=== PATIENT | male | born 1990 | race African-American/Black ===

== ENCOUNTER 2020-07-01 17:49 | Emergency (ER) | payer BC ==
[2020-07-01] MEDS ORDERED: Azithromycin 250 MG Tab PO ONE (17:50)
--- NOTE | 2020-07-01 18:27 | EDM.PDOC ---
ED HPI GENERAL MEDICAL PROBLEM - General Chief Complaint: Respiratory Problem Stated Complaint: COVID SYMPTOMS Time Seen by Provider: 07/01/20 18:25 Source of Information: Reports: Patient History Limitations: Reports: No Limitations - History of Present Illness INITIAL COMMENTS - FREE TEXT/NARRATIVE: 29-year-old male who reports onset of cough and some mild sore throat on 06/20. He reports that it seemed to be associated with him starting working at the [employer] with a lot of [place] environment. His symptoms however continued even when he was at work and they have progressively worsened with time. Ears associated with this. No nausea or vomiting. He has had some intermittent headache but has no headache now. He denies any pain at present. He would rate his pain as a 0/10 at present. He was seen at [facility] in [place] on 06/27/2020. He was given prescriptions for an inhaler and antibiotics and they were wanting to do a chest x-ray but the x-ray person darting left. The patient reports that he has been unable to fill the prescription because he does not have the funds to do that. In the interim, his feeling of shortness of breath and cough have worsened with time. The cough is a hacking cough and nonproductive. He reports that the symptoms are worse at night and he feels that he coughs all night and he coughs to the point of 4 he also passes out. No leg swelling. No chest pain. No palpitations. He reports that he has been eating and drinking normally. Nothing really seems to make his symptoms better. He does report that his sense of taste seems to be somewhat off today but he has normal sensation of smell. There are no other associated signs or symptoms. There are no other modifying factors. 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 Social & Family History - Tobacco Use Smoking Status *Q: Current Every Day Smoker - Alcohol Use Alcohol Use History: Yes Alcohol Use Frequency: Weekly (Drinks alcohol approximately 3 times a week.) - Recreational Drug Use Recreational Drug Use: No - Living Situation & Occupation Occupation: Employed ED ROS GENERAL - Review of Systems Review Of Systems: See Below Constitutional: Reports: Fatigue HEENT: Reports: Throat Pain Respiratory: Reports: Shortness of Breath, Cough. Denies: Sputum Cardiovascular: Reports: Lightheadedness (With coughing.) GI/Abdominal: Reports: No Symptoms : Reports: No Symptoms Musculoskeletal: Reports: No Symptoms Skin: Reports: No Symptoms Neurological: Reports: Other (Near-syncope with coughing.) Psychiatric: Reports: No Symptoms Hematologic/Lymphatic: Reports: No Symptoms Immunologic: Reports: No Symptoms ED EXAM, GENERAL - Physical Exam Exam: See Below Exam Limited By: No Limitations General Appearance: Alert, WD/WN, No Apparent Distress Eye Exam: Bilateral Eye: EOMI, Normal Inspection Ears: Normal External Exam, Hearing Grossly Normal Ear Exam: Bilateral Ear: Auricle Normal Nose: Normal Inspection, Normal Mucosa, No Blood Throat/Mouth: Normal Oropharynx, Normal Voice, No Airway Compromise Head: Atraumatic, Normocephalic Neck: Normal Inspection, Supple, Non-Tender, Full Range of Motion Respiratory/Chest: No Respiratory Distress, No Accessory Muscle Use, Wheezing (Bilaterally with decreased air movement.), Prolonged Expiration. No: Stridor Cardiovascular: Normal Peripheral Pulses, Regular Rate, Rhythm, No Murmur, No Rub Peripheral Pulses: 2+: Radial (L), Radial (R) GI/Abdominal: Normal Bowel Sounds, Soft, Non-Tender, No Mass Back Exam: Normal Inspection Extremities: Normal Inspection, Normal Range of Motion, Non-Tender, No Pedal Edema, Normal Capillary Refill Neurological: Alert, Oriented, CN II-XII Intact, Normal Cognition, No Motor/Sensory Deficits Skin Exam: Warm, Dry, Intact, Normal Color, No Rash Course - Vital Signs Last Recorded V/S: Last Vital Signs Temp 36.8 C 07/01/20 18:05 Pulse 100 07/01/20 18:05 Resp 18 07/01/20 18:05 BP 136/92 H 07/01/20 18:09 Pulse Ox 98 07/01/20 18:05 - Orders/Labs/Meds Orders: Active Orders 24 hr Category Date Time Status Chest 2V [CR] Stat Exams 07/01/20 20:50 Taken Labs: Laboratory Tests 07/01/20 Range/Units 19:05 SARS-CoV-2 RNA (MICHEL) Negative (NEGATIVE) Meds: Medications Discontinued Medications Generic Name Dose Route Start Last Admin Trade Name Sol PRN Reason Stop Dose Admin Albuterol 1 gm 07/01/20 20:51 07/01/20 21:15 Ventolin Hfa INH 07/01/20 20:52 4 inhaler ONETIME ONE Administration Prednisone 60 mg 07/01/20 20:51 07/01/20 21:15 Prednisone PO 07/01/20 20:52 60 mg ONETIME ONE Administration - Radiology Interpretation Free Text/Narrative:: Chest x-ray PA and lateral shows no acute disease. - Re-Assessments/Exams Free Text/Narrative Re-Assessment/Exam: 07/01/20 21:38: Patient's chest x-ray shows no acute disease. He has remained vitally stable with normal O2 saturations. He was given an albuterol inhaler, 4 puffs approximately 15-20 minutes ago and he is feeling improved after this. He was also given prednisone 60 mg by mouth. A rapid Covid test was negative. He appears to be having bronchitis with reactive airway disease. It appears that there could be an allergic component as he has been having symptoms since he began working at the [employer] that he is currently working. We will send the inhaler home with him that he can use 2-4 puffs every 4 hours as needed for cough and difficulty breathing. I will also place patient on Zithromax for 5 day course and prednisone 60 mg daily for the next 5 days. He should increase his fluid intake. I have strongly encouraged him to stop smoking cigarettes. Precautions and reasons for return to the emergency department were discussed with the patient will he was in the emergency department over detailed in the patient's discharge instructions. Departure - Departure Time of Disposition: 21:45 Disposition: Home, Self-Care 01 Condition: Good Clinical Impression: Bronchitis Reactive airway disease Qualifiers: Asthma severity: moderate Asthma persistence: persistent Asthma complication type: uncomplicated Qualified Code(s): J45.40 - Moderate persistent asthma, uncomplicated - Discharge Information Prescriptions: predniSONE [Prednisone] 60 mg PO QAM 5 Days #15 tablet Instructions: Bronchospasm, Adult, How to Use a Metered Dose Inhaler, Acute Bronchitis, Adult, [id number] Referrals: Samy Brown MD [Primary Care Provider] - Forms: ED Department Discharge, ED Return to Work/School Form Additional Instructions: A Covid test was negative. Your chest x-ray showed no evidence of pneumonia. You did have quite a bit of wheezing or bronchospasm (constriction of your air passages) and appeared to have an asthma-like condition called reactive airway disease which could be related to an infection but could also be related to the dust in your work environment. No work for the next 2 days. Use the albuterol inhaler with the spacer that we provided you for wheezing and for cough and for difficulty breathing. Increase your fluid intake. Other medications as prescribed (Zithromax, prednisone). Back to the emergency department for worse breathing, high fever, severe weakness or any other concerning sign or symptom. Sepsis Event Note (ED) - Evaluation Sepsis Screening Result: No Definite Risk - Focused Exam Vital Signs: Vital Signs Temp Pulse Resp BP Pulse Ox 07/01/20 18:09 136/92 H 07/01/20 18:05 36.8 C 100 18 157/104 H 98 - My Orders Last 24 Hours: My Active Orders 07/01/20 20:50 Chest 2V [CR] Stat - Assessment/Plan Last 24 Hours: My Active Orders 07/01/20 20:50 Chest 2V [CR] Stat
[2020-07-01] MEDS ORDERED: predniSONE 20 MG Tab PO ONE (20:51)
[2020-07-01] MEDS ORDERED: Albuterol 8 GM Inhaler INH ONE (20:51)
== END 2020-07-01 21:56 | disposition home or self-care (01) ==
LOC: FB.ED 17:49
DX: J45.40 Moderate persistent asthma, uncomplicated (principal); F17.210 Nicotine dependence, cigarettes, uncomplicated; Z20.828 Contact with and (suspected) exposure to other viral communicable diseases
CPT/HCPCS: 71046; 87635; 99285; A9270; J7512; U0002

== ENCOUNTER 2020-10-09 17:29 | Emergency (ER) | payer BC, MEDICAID ==
--- NOTE | 2020-10-09 18:44 | EDM.PDOC ---
ED HPI GENERAL MEDICAL PROBLEM - General Chief Complaint: Chest Pain Stated Complaint: CHEST PAIN Time Seen by Provider: 10/09/20 18:10 Source of Information: Reports: Patient History Limitations: Reports: No Limitations - History of Present Illness INITIAL COMMENTS - FREE TEXT/NARRATIVE: c/o L sided CP pt has been having sharp in his L upper chest for 1m, will last several hours to all day no increase with DB, lifting, putting arms overhead no decrease with heat not taken any meds for it says he used IV drugs in past, which has made him worried re his heart has taken BP med x 1y no PCP as moved to area, working, got his health card one month ago has infant child at home has been using an HFA for past 2m, daily, altho not clear he has been wheezing denies h/o asthma, no exercise induced asthma left chest Pain Score (Numeric/FACES): 6 - Related Data Allergies Allergy/AdvReac Type Severity Reaction Status Date / Time No Known Allergies Allergy Verified 07/01/20 18:04 Home Meds: Home Meds FLUoxetine [PROzac] 20 mg PO DAILY 10/09/20 [History] cloNIDine [Catapres] 0.1 mg PO BID 10/09/20 [History] Past Medical History Cardiovascular History: Reports: Hypertension Neurological History: Reports: Seizure Psychiatric History: Reports: Bipolar, PTSD - Past Surgical History Other Surgical History Comment: No previous surgeries. Social & Family History - Tobacco Use Tobacco Use Status *Q: Current Every Day Tobacco User Years of Tobacco use: 16 Packs/Tins Daily: 0.5 - Living Situation & Occupation Occupation: Employed ED ROS GENERAL - Review of Systems Review Of Systems: See Below Constitutional: Reports: No Symptoms HEENT: Reports: No Symptoms Respiratory: Denies: Wheezing, Pleuritic Chest Pain Cardiovascular: Reports: No Symptoms Endocrine: Reports: No Symptoms GI/Abdominal: Reports: No Symptoms : Reports: No Symptoms Musculoskeletal: Reports: No Symptoms Skin: Reports: No Symptoms Neurological: Reports: No Symptoms Psychiatric: Reports: No Symptoms Hematologic/Lymphatic: Reports: No Symptoms Immunologic: Reports: No Symptoms ED EXAM, GENERAL - Physical Exam Exam: See Below Exam Limited By: No Limitations General Appearance: Alert, WD/WN, No Apparent Distress, Other (holding hand on his L upper chest (not beter with massage), no point tender, pt wonders if it may be stress) Nose: Normal Inspection Throat/Mouth: Normal Inspection, Normal Voice Head: Atraumatic, Normocephalic Neck: Normal Inspection, Supple, Non-Tender, Full Range of Motion. No: Lymphadenopathy (R), Lymphadenopathy (L) Respiratory/Chest: No Respiratory Distress, Lungs Clear, Normal Breath Sounds, No Accessory Muscle Use, Chest Non-Tender Cardiovascular: Regular Rate, Rhythm, No Edema, No Gallop, No JVD, No Murmur, No Rub GI/Abdominal: Soft, Non-Tender Back Exam: Normal Inspection, Full Range of Motion, NT Extremities: Normal Inspection, Normal Range of Motion, Non-Tender, No Pedal Edema Neurological: Alert, Oriented, CN II-XII Intact, Normal Cognition, Normal Gait, No Motor/Sensory Deficits Psychiatric: Normal Affect, Normal Mood Skin Exam: Warm, Dry, Intact, Normal Color, No Rash Lymphatic: No Adenopathy Course - Vital Signs Last Recorded V/S: Last Vital Signs Temp 37.0 C 10/09/20 17:29 Pulse 100 10/09/20 17:29 Resp 19 10/09/20 17:29 BP 165/96 H 10/09/20 17:29 Pulse Ox 97 10/09/20 17:29 - Orders/Labs/Meds Orders: Active Orders 24 hr Category Date Time Status Chest 2V [CR] Stat Exams 10/09/20 18:37 Ordered C-REACTIVE PROTEIN [CHEM] Stat Lab 10/09/20 18:37 Ordered CBC WITH AUTO DIFF [HEME] Stat Lab 10/09/20 18:37 Ordered COMPREHENSIVE METABOLIC PN,CMP [CHEM] Stat Lab 10/09/20 18:37 Ordered PRO B-TYPE NATRIUR PEPT,BNPPRO [CHEM] Stat Lab 10/09/20 18:37 Ordered TROPONIN I [CHEM] Stat Lab 10/09/20 18:37 Ordered Departure - Departure Time of Disposition: 19:00 Disposition: Still A Patient 30 Condition: Good Clinical Impression: Left-sided chest wall pain Sepsis Event Note (ED) - Evaluation Sepsis Screening Result: No Definite Risk - Focused Exam Vital Signs: Vital Signs Temp Pulse Resp BP Pulse Ox 10/09/20 17:29 37.0 C 100 19 165/96 H 97 - My Orders Last 24 Hours: My Active Orders 10/09/20 18:37 Chest 2V [CR] Stat C-REACTIVE PROTEIN [CHEM] Stat CBC WITH AUTO DIFF [HEME] Stat COMPREHENSIVE METABOLIC PN,CMP [CHEM] Stat PRO B-TYPE NATRIUR PEPT,BNPPRO [CHEM] Stat TROPONIN I [CHEM] Stat - Assessment/Plan Last 24 Hours: My Active Orders 10/09/20 18:37 Chest 2V [CR] Stat C-REACTIVE PROTEIN [CHEM] Stat CBC WITH AUTO DIFF [HEME] Stat COMPREHENSIVE METABOLIC PN,CMP [CHEM] Stat PRO B-TYPE NATRIUR PEPT,BNPPRO [CHEM] Stat TROPONIN I [CHEM] Stat
--- NOTE | 2020-10-09 19:55 | CR ---
INDICATION: Left upper chest pain. CHEST, TWO VIEWS: PA and lateral views of the chest 10/09/20 were compared with 07/01/20 and revealed the heart to remain normal in size and shape. Mediastinum and bony thorax were essentially unremarkable except to note a very minimal dextroconvex scoliosis of the mid thoracic spine. Overlying EKG leads are noted. A definite active infiltrate or effusion was not identified with markings similar to the previous examination. IMPRESSION: No definite active disease. MTDD
== END 2020-10-09 21:05 | disposition still patient (30) ==
LOC: FB.ED 17:29
DX: R07.89 Other chest pain (principal); I10 Essential (primary) hypertension; Z72.0 Tobacco use
CPT/HCPCS: 36415; 71046; 80053; 83880; 84484; 85025; 86140; 93005; 99284; 99285-25

== ENCOUNTER 2020-10-14 16:20 | Emergency (ER) | payer MEDICAID ==
--- NOTE | 2020-10-14 18:22 | EDM.PDOC ---
ED HPI GENERAL MEDICAL PROBLEM - General Chief Complaint: Abdominal Pain Stated Complaint: ABDOMINAL PAIN Time Seen by Provider: 10/14/20 18:20 Source of Information: Reports: Patient History Limitations: Reports: No Limitations - History of Present Illness INITIAL COMMENTS - FREE TEXT/NARRATIVE: 30-year-old male who reports onset of left lower abdominal pain that is a sharp and throbbing type pain 3 days ago. The pain has progressively worsened with time and it seems to have radiated to his flank and to his left mid back and sometimes seems to go into his left chest. He was actually seen here 3 days ago for the chest pain and he reports the pain has not improved. He has also noted some nausea with vomiting over the past few days with vomiting times one today he also has had diarrhea today 3. There has been no blood in either the emesis or the stool but he does report that the stool has been somewhat dark. No fevers but he has had sweats. No chills. No nasal congestion. No cough. No sore throat. No dysuria. No hematuria. He does report decreased urine output and he has had decreased by mouth intake. There are no other associated signs or symptoms. There are no other modifying factors. Onset: Other Duration: Getting Worse (3 days ago) Location: Reports: Chest, Abdomen, Back Quality: Reports: Sharp, Throbbing Severity: Moderate (to severe.) Improves with: Reports: None Worsens with: Reports: Other (Palpation. He really has not been eating and has no appetite.) Context: Reports: Other (As above.) Associated Symptoms: Reports: Loss of Appetite, Malaise, Nausea/Vomiting Treatments CLOUD CONSULTANT: Reports: Other (see below) (Nothing.) - Related Data Allergies Allergy/AdvReac Type Severity Reaction Status Date / Time No Known Allergies Allergy Verified 07/01/20 18:04 Home Meds: Home Meds FLUoxetine [PROzac] 20 mg PO DAILY 10/09/20 [History] cloNIDine [Catapres] 0.1 mg PO BID 10/09/20 [History] Past Medical History Cardiovascular History: Reports: Hypertension Respiratory History: Reports: Other (See Below) (Reactive airway disease on inhalers.) Neurological History: Reports: Seizure Psychiatric History: Reports: Bipolar, PTSD - Past Surgical History Other Surgical History Comment: No previous surgeries. Social & Family History - Tobacco Use Tobacco Use Status *Q: Current Every Day Tobacco User - Alcohol Use Alcohol Use History: Yes Alcohol Use Frequency: Weekly (3 times a week) - Living Situation & Occupation Occupation: Employed (Works at [employer]) ED ROS GENERAL - Review of Systems Review Of Systems: See Below Constitutional: Reports: Malaise, Night Sweats, Decreased Appetite HEENT: Reports: No Symptoms Respiratory: Reports: No Symptoms Cardiovascular: Reports: No Symptoms GI/Abdominal: Reports: Abdominal Pain, Diarrhea, Nausea, Vomiting : Reports: Other (Decreased urine output). Denies: Dysuria, Hematuria Musculoskeletal: Reports: No Symptoms Skin: Reports: No Symptoms Neurological: Reports: No Symptoms Hematologic/Lymphatic: Reports: No Symptoms Immunologic: Reports: No Symptoms ED EXAM, GI/ABD - Physical Exam Exam: See Below Exam Limited By: No Limitations General Appearance: Alert, WD/WN, Mild Distress (Seems to be in some pain. He does not appear toxic.) Eyes: Bilateral: Normal Appearance, EOMI Ears: Normal External Exam, Hearing Grossly Normal Nose: Normal Inspection, Nasal Deformity, Nasal Swelling, Nasal Drainage Throat/Mouth: Normal Voice, No Airway Compromise, Other (Dry mucous membranes.) Head: Atraumatic, Normocephalic Neck: Normal Inspection, Supple, Non-Tender, Full Range of Motion Respiratory/Chest: No Respiratory Distress, Lungs Clear, Normal Breath Sounds, No Accessory Muscle Use, Chest Non-Tender Cardiovascular: Normal Peripheral Pulses, Regular Rate, Rhythm, No Murmur GI/Abdominal Exam: Soft, No Mass, Tender (He left lower quadrant and left flank.), Abnormal Bowel Sounds (Bowel sounds are somewhat diminished.) Back Exam: Full Range of Motion, CVA Tenderness (L) Extremities: Normal Inspection, Normal Range of Motion, Non-Tender, No Pedal Edema, Normal Capillary Refill Neurological: Alert, Oriented, CN II-XII Intact, Normal Cognition, No Motor/Sensory Deficits Skin Exam: Warm, Dry, Intact, Normal Color, No Rash Course - Vital Signs Last Recorded V/S: Last Vital Signs Temp 36.7 C 10/14/20 17:01 Pulse 87 10/14/20 17:01 Resp 17 10/14/20 17:01 BP 157/109 H 10/14/20 17:01 Pulse Ox 98 10/14/20 17:01 - Orders/Labs/Meds Orders: Active Orders 24 hr Category Date Time Status Abdomen Pelvis w Cont [CT] Stat Exams 10/14/20 19:28 Ordered Sodium Chloride 0.9% [Normal Saline] 1,000 ml Med 10/14/20 18:45 Active IV ASDIRECTED Sodium Chloride 0.9% [Saline Flush] Med 10/14/20 18:30 Active 10 ml FLUSH ASDIRECTED PRN Peripheral IV Insertion Adult [OM.PC] Routine Oth 10/14/20 18:30 Ordered Medication Orders Sodium Chloride (Normal Saline) 1,000 mls @ 150 mls/hr IV ASDIRECTED ISELA Last Admin: 10/14/20 19:52 Dose: 150 mls/hr Documented by: MATIMAR Sodium Chloride (Saline Flush) 10 ml FLUSH ASDIRECTED PRN PRN Reason: Keep Vein Open Labs: Laboratory Tests 10/14/20 10/14/20 10/14/20 Range/Units 18:30 18:40 18:40 WBC 6.8 (3.2-10.1) x10-3/uL RBC 4.96 (3.90-5.90) x10(6)uL Hgb 15.4 (12.9-17.7) g/dL Hct 45.4 (38.3-50.1) % MCV 91.6 (80.8-98.7) fL MCH 31.0 (27.0-33.3) pg MCHC 33.8 (28.7-35.3) g/dL RDW 13.7 (12.4-15.0) % Plt Count 234 (117-477) x10(3)uL MPV 9.6 (6.7-11.0) fL Neut % (Auto) 55.3 (40.3-71.8) % Lymph % (Auto) 27.5 (15.8-45.3) % [place] % (Auto) 14.0 (5.5-15.2) % Eos % (Auto) 2.5 (0.1-6.8) % Baso % (Auto) 0.7 (0.3-3.8) % Neut # (Auto) 3.7 (1.7-6.9) x10-3/uL Lymph # (Auto) 1.9 (0.5-4.5) x10-3/uL [place] # (Auto) 0.9 (0.0-1.2) x10-3/uL Eos # (Auto) 0.2 (0.0-0.6) x10-3/uL Baso # (Auto) 0.0 (0.0-0.3) x10-3/uL Sodium 138 (135-145) mmol/L Potassium 4.0 (3.5-5.3) mmol/L Chloride 100 (100-110) mmol/L Carbon Dioxide 27 (21-32) mmol/L BUN 7 (7-18) mg/dL Creatinine 1.1 (0.70-1.30) mg/dL Est Cr Clr Drug Dosing TNP Estimated GFR (MDRD) > 60 (>60) BUN/Creatinine Ratio 6.4 L (9-20) Glucose 105 (80-116) mg/dL Calcium 8.4 L (8.6-10.2) mg/dL Magnesium 1.4 L (1.8-2.5) mg/dL Total Bilirubin 0.7 (0.1-1.3) mg/dL AST 100 H D (5-25) IU/L ALT 164 H* D (12-36) U/L Alkaline Phosphatase 116 H (56-112) IU/L C-Reactive Protein (0.5-0.9) mg/dL Total Protein 8.2 H (6.0-8.0) g/dL Albumin 3.9 (3.5-5.2) g/dL Globulin 4.3 g/dL Albumin/Globulin Ratio 0.9 Lipase (73-393) U/L Urine Color Yellow (YELLOW) Urine Appearance Slightly cloudy (CLEAR) Urine pH 6.0 (5.0-6.5) Ur Specific [place] 1.020 (1.010-1.025) Urine Protein 30 H (NEGATIVE) mg/dL Urine Glucose (UA) Normal (NORMAL) mg/dL Urine Ketones 15 H (NEGATIVE) mg/dL Urine Occult Blood Negative (NEGATIVE) Urine Nitrite Negative (NEGATIVE) Urine Bilirubin Small H (NEGATIVE) Urine Urobilinogen Normal (NEGATIVE) mg/dL Ur Leukocyte Esterase Negative (NEGATIVE) Urine RBC 0-5 (0-5) Urine WBC 0-5 (0-5) Ur Squamous Epith Cells Occasional (NS,R,O) Urine Bacteria Few H (NS) Fine Granular Casts Occasional H (NS) Urine Mucus Many H (NS) 10/14/20 Range/Units 18:40 WBC (3.2-10.1) x10-3/uL RBC (3.90-5.90) x10(6)uL Hgb (12.9-17.7) g/dL Hct (38.3-50.1) % MCV (80.8-98.7) fL MCH (27.0-33.3) pg MCHC (28.7-35.3) g/dL RDW (12.4-15.0) % Plt Count (117-477) x10(3)uL MPV (6.7-11.0) fL Neut % (Auto) (40.3-71.8) % Lymph % (Auto) (15.8-45.3) % [place] % (Auto) (5.5-15.2) % Eos % (Auto) (0.1-6.8) % Baso % (Auto) (0.3-3.8) % Neut # (Auto) (1.7-6.9) x10-3/uL Lymph # (Auto) (0.5-4.5) x10-3/uL [place] # (Auto) (0.0-1.2) x10-3/uL Eos # (Auto) (0.0-0.6) x10-3/uL Baso # (Auto) (0.0-0.3) x10-3/uL Sodium (135-145) mmol/L Potassium (3.5-5.3) mmol/L Chloride (100-110) mmol/L Carbon Dioxide (21-32) mmol/L BUN (7-18) mg/dL Creatinine (0.70-1.30) mg/dL Est Cr Clr Drug Dosing Estimated GFR (MDRD) (>60) BUN/Creatinine Ratio (9-20) Glucose (80-116) mg/dL Calcium (8.6-10.2) mg/dL Magnesium (1.8-2.5) mg/dL Total Bilirubin (0.1-1.3) mg/dL AST (5-25) IU/L ALT (12-36) U/L Alkaline Phosphatase (56-112) IU/L C-Reactive Protein 0.3 L (0.5-0.9) mg/dL Total Protein (6.0-8.0) g/dL Albumin (3.5-5.2) g/dL Globulin g/dL Albumin/Globulin Ratio Lipase 105 (73-393) U/L Urine Color (YELLOW) Urine Appearance (CLEAR) Urine pH (5.0-6.5) Ur Specific [place] (1.010-1.025) Urine Protein (NEGATIVE) mg/dL Urine Glucose (UA) (NORMAL) mg/dL Urine Ketones (NEGATIVE) mg/dL Urine Occult Blood (NEGATIVE) Urine Nitrite (NEGATIVE) Urine Bilirubin (NEGATIVE) Urine Urobilinogen (NEGATIVE) mg/dL Ur Leukocyte Esterase (NEGATIVE) Urine RBC (0-5) Urine WBC (0-5) Ur Squamous Epith Cells (NS,R,O) Urine Bacteria (NS) Fine Granular Casts (NS) Urine Mucus (NS) Meds: Medications Generic Name Dose Route Start Last Admin Trade Name Freq PRN Reason Stop Dose Admin Sodium Chloride 1,000 mls @ 150 mls/hr 10/14/20 18:45 10/14/20 19:52 Normal Saline IV 150 mls/hr ASDIRECTED ISELA Administration Sodium Chloride 10 ml 10/14/20 18:30 Saline Flush FLUSH ASDIRECTED PRN Keep Vein Open Discontinued Medications Generic Name Dose Route Start Last Admin Trade Name Freq PRN Reason Stop Dose Admin Sodium Chloride 1,000 mls @ 999 mls/hr 10/14/20 18:32 10/14/20 18:35 Normal Saline IV 10/14/20 19:32 999 mls/hr .BOLUS ONE Administration Iopamidol 100 ml 10/14/20 19:37 10/14/20 19:51 Isovue-370 (76%) IV 10/14/20 19:38 100 ml . DIRECTED ONE Administration Ketorolac Tromethamine 30 mg 10/14/20 18:32 10/14/20 18:49 Toradol IVPUSH 10/14/20 18:33 30 mg ONETIME ONE Administration Ondansetron HCl 4 mg 10/14/20 18:32 10/14/20 18:51 Zofran IVPUSH 10/14/20 18:33 4 mg ONETIME ONE Administration - Re-Assessments/Exams Free Text/Narrative Re-Assessment/Exam: 10/14/20 19:30: Care of patient to Dr. Urnea. Please see his note regard to the patient's further ED course and to the patient's disposition. Departure - Departure Time of Disposition: 19:30 Disposition: Still A Patient 30 Clinical Impression: Vomiting and diarrhea Abdominal pain Qualifiers: Abdominal location: left lower quadrant Qualified Code(s): R10.32 - Left lower quadrant pain - Discharge Information Referrals: PCP,None [Primary Care Provider] - Forms: ED Department Discharge Sepsis Event Note (ED) - Focused Exam Vital Signs: Vital Signs Temp Pulse Resp BP Pulse Ox 10/14/20 17:01 36.7 C 87 17 157/109 H 98 - My Orders Last 24 Hours: My Active Orders 10/14/20 18:30 Sodium Chloride 0.9% [Saline Flush] 10 ml FLUSH ASDIRECTED PRN Peripheral IV Insertion Adult [OM.PC] Routine 10/14/20 18:45 Sodium Chloride 0.9% [Normal Saline] 1,000 ml IV ASDIRECTED - Assessment/Plan Last 24 Hours: My Active Orders 10/14/20 18:30 Sodium Chloride 0.9% [Saline Flush] 10 ml FLUSH ASDIRECTED PRN Peripheral IV Insertion Adult [OM.PC] Routine 10/14/20 18:45 Sodium Chloride 0.9% [Normal Saline] 1,000 ml IV ASDIRECTED
[2020-10-14] MEDS ORDERED: Sodium Chloride 0.9% 10 ML Syringe FLUSH PRN (18:30)
[2020-10-14] MEDS ORDERED: Ondansetron 4 MG/2 ML SDV IVPUSH ONE (18:32)
[2020-10-14] MEDS ORDERED: Ketorolac 30 MG/ML SDV IVPUSH ONE (18:32)
[2020-10-14] MEDS ORDERED: Sodium Chloride 0.9% 1,000 ML IV ONE (18:32)
[2020-10-14] MEDS ORDERED: Sodium Chloride 0.9% 1,000 ML IV SCH (18:45)
[2020-10-14] MEDS ORDERED: Iopamidol 755 Mg/ML 100 ML Bottle IV ONE (19:37)
== END 2020-10-14 21:05 | disposition home or self-care (01) ==
LOC: FB.ED 16:20
DX: K76.0 Fatty (change of) liver, not elsewhere classified (principal); R10.32 Left lower quadrant pain; I10 Essential (primary) hypertension; R11.2 Nausea with vomiting, unspecified; J45.909 Unspecified asthma, uncomplicated; R19.7 Diarrhea, unspecified; Z79.899 Other long term (current) drug therapy; Z72.0 Tobacco use
CPT/HCPCS: 74177; 80053; 81001; 83690; 83735; 85025; 86140; 96374; 96375; 99284; J1885; J2405; J7030; Q9967

== ENCOUNTER 2021-02-15 11:24 | Inpatient (IN) | payer MEDICAID ==
[2021-02-15] MEDS ORDERED: Ketorolac 30 MG/ML SDV IVPUSH ONE (11:59)
[2021-02-15] MEDS ORDERED: Ondansetron 4 MG/2 ML SDV IVPUSH ONE (11:59)
[2021-02-15] MEDS ORDERED: Sodium Chloride 0.9% 1,000 ML IV SCH (12:00)
--- NOTE | 2021-02-15 12:12 | EDM.PDOC ---
ED HPI GENERAL MEDICAL PROBLEM - General Chief Complaint: Abdominal Pain Stated Complaint: ABD AND BACK PAIN Time Seen by Provider: 02/15/21 11:45 Source of Information: Reports: Patient History Limitations: Reports: No Limitations - History of Present Illness INITIAL COMMENTS - FREE TEXT/NARRATIVE: c/o abd pain awoke 3a with pain in upper mid abd, continuous, spread throughout abd, n/v all day has had low back pain x 1w as well since injury playing basketball denies prior abd pain except for 1m ago when he went to clinic, that pain went away no f/c/d on a GI med begun 1m ago at [facility] that he takes 30 min before meals, not sure of the name PSH: no prior abd surgery SH: has 6-7 shots/day, 4-5 cigs/day, denies THC/street drugs, little caffeine, here with sig other and child sabina soft BM today ABDOMINAL Pain Score (Numeric/FACES): 10 - Related Data Allergies Allergy/AdvReac Type Severity Reaction Status Date / Time No Known Allergies Allergy Unverified 02/15/21 11:57 Home Meds: Home Meds cloNIDine [Catapres] 0.05 mg PO DAILY 10/09/20 [History] Albuterol Sulfate [Albuterol Sulfate Hfa] 2 puff INH Q4H PRN 02/15/21 [History] Losartan [Cozaar] 50 mg PO DAILY 02/15/21 [History] ED ROS GENERAL - Review of Systems Review Of Systems: See Below Constitutional: Reports: No Symptoms HEENT: Reports: No Symptoms Respiratory: Reports: No Symptoms Cardiovascular: Reports: No Symptoms Endocrine: Reports: No Symptoms GI/Abdominal: Reports: Abdominal Pain, Nausea, Vomiting. Denies: Constipation, Diarrhea : Reports: No Symptoms Musculoskeletal: Reports: No Symptoms Skin: Reports: No Symptoms Neurological: Reports: No Symptoms Psychiatric: Reports: No Symptoms Hematologic/Lymphatic: Reports: No Symptoms Immunologic: Reports: No Symptoms ED EXAM, GI/ABD - Physical Exam Exam: See Below Exam Limited By: No Limitations General Appearance: Alert, WD/WN, Mild Distress, Other (alert, lying on R side, nontoxic, cooperative, uncomfortable, alcohol on breath) Nose: Normal Inspection Throat/Mouth: Normal Inspection, Normal Oropharynx, Normal Voice, No Airway Compromise Head: Atraumatic, Normocephalic Neck: Normal Inspection, Supple, Non-Tender, Full Range of Motion. No: Lymphadenopathy (R), Lymphadenopathy (L) Respiratory/Chest: No Respiratory Distress, Lungs Clear, Normal Breath Sounds, Chest Non-Tender Cardiovascular: Regular Rate, Rhythm, No Edema, No Gallop, No JVD, No Murmur GI/Abdominal Exam: Normal Bowel Sounds, Soft, Other (good BS x 4, soft, prominent c/w adipose tissue (and not distention), nonspecific 1+ tender at flanks and across upper abd, very little tender across lower abd) Back Exam: Normal Inspection, Full Range of Motion Extremities: Normal Inspection, Non-Tender, No Pedal Edema Neurological: Alert, Oriented, CN II-XII Intact, Normal Cognition, No Motor/Sensory Deficits Psychiatric: Normal Affect, Normal Mood Skin Exam: Warm, Dry, Intact, Normal Color, No Rash Lymphatic: No Adenopathy Course - Vital Signs Last Recorded V/S: Last Vital Signs Temp 36.4 C 02/15/21 11:35 Pulse 113 H 02/15/21 11:35 Resp 22 H 02/15/21 11:35 BP 148/98 H 02/15/21 11:35 Pulse Ox 96 02/15/21 11:35 - Orders/Labs/Meds Orders: Active Orders 24 hr Category Date Time Status Admission Status [Patient Status] [ADT] Routine ADT 02/15/21 13:50 Ordered Abdomen Pelvis w Cont [CT] Stat Exams 02/15/21 12:00 Taken Sodium Chloride 0.9% [Normal Saline] 1,000 ml Med 02/15/21 12:00 Active IV ASDIRECTED Medication Orders Sodium Chloride (Normal Saline) 1,000 mls @ 999 mls/hr IV ASDIRECTED ISELA Last Admin: 02/15/21 12:15 Dose: 999 mls/hr Documented by: JOSEFINA Labs: Laboratory Tests 02/15/21 02/15/21 02/15/21 Range/Units 12:12 12:12 12:12 WBC 8.2 (3.2-10.1) x10-3/uL RBC 4.94 (3.90-5.90) x10(6)uL Hgb 16.0 (12.9-17.7) g/dL Hct 47.4 (38.3-50.1) % MCV 96.0 (80.8-98.7) fL MCH 32.5 (27.0-33.3) pg MCHC 33.8 (28.7-35.3) g/dL RDW 13.6 (12.4-15.0) % Plt Count 194 (117-477) x10(3)uL MPV 9.8 (6.7-11.0) fL Neut % (Auto) 63.8 (40.3-71.8) % Lymph % (Auto) 23.6 (15.8-45.3) % [place] % (Auto) 11.7 (5.5-15.2) % Eos % (Auto) 0.5 (0.1-6.8) % Baso % (Auto) 0.4 (0.3-3.8) % Neut # (Auto) 5.3 (1.7-6.9) x10-3/uL Lymph # (Auto) 1.9 (0.5-4.5) x10-3/uL [place] # (Auto) 1.0 (0.0-1.2) x10-3/uL Eos # (Auto) 0.0 (0.0-0.6) x10-3/uL Baso # (Auto) 0.0 (0.0-0.3) x10-3/uL Sodium 136 (135-145) mmol/L Potassium 3.5 (3.5-5.3) mmol/L Chloride 98 L (100-110) mmol/L Carbon Dioxide 25 (21-32) mmol/L BUN 7 (7-18) mg/dL Creatinine 1.2 (0.70-1.30) mg/dL Est Cr Clr Drug Dosing 86.29 mL/min Estimated GFR (MDRD) > 60 (>60) BUN/Creatinine Ratio 5.8 L (9-20) Glucose 187 H D (80-116) mg/dL Calcium 8.0 L (8.6-10.2) mg/dL Total Bilirubin 0.8 (0.1-1.3) mg/dL AST 247 H* D (5-25) IU/L ALT 195 H* D (12-36) U/L Alkaline Phosphatase 130 H (56-112) IU/L C-Reactive Protein 0.8 (0.5-0.9) mg/dL Total Protein 8.3 H (6.0-8.0) g/dL Albumin 3.6 (3.5-5.2) g/dL Globulin 4.7 g/dL Albumin/Globulin Ratio 0.8 Lipase 477 H (73-393) U/L Urine Color (YELLOW) Urine Appearance (CLEAR) Urine pH (5.0-6.5) Ur Specific [place] (1.010-1.025) Urine Protein (NEGATIVE) mg/dL Urine Glucose (UA) (NORMAL) mg/dL Urine Ketones (NEGATIVE) mg/dL Urine Occult Blood (NEGATIVE) Urine Nitrite (NEGATIVE) Urine Bilirubin (NEGATIVE) Urine Urobilinogen (NEGATIVE) mg/dL Ur Leukocyte Esterase (NEGATIVE) Urine RBC (0-5) Urine WBC (0-5) Ur Squamous Epith Cells (NS,R,O) Urine Bacteria (NS) Urine Mucus (NS) Ethyl Alcohol 0.13 H (<0.03) % // Range/Units 13:20 WBC (3.2-10.1) x10-3/uL RBC (3.90-5.90) x10(6)uL Hgb (12.9-17.7) g/dL Hct (38.3-50.1) % MCV (80.8-98.7) fL MCH (27.0-33.3) pg MCHC (28.7-35.3) g/dL RDW (12.4-15.0) % Plt Count (117-477) x10(3)uL MPV (6.7-11.0) fL Neut % (Auto) (40.3-71.8) % Lymph % (Auto) (15.8-45.3) % [place] % (Auto) (5.5-15.2) % Eos % (Auto) (0.1-6.8) % Baso % (Auto) (0.3-3.8) % Neut # (Auto) (1.7-6.9) x10-3/uL Lymph # (Auto) (0.5-4.5) x10-3/uL [place] # (Auto) (0.0-1.2) x10-3/uL Eos # (Auto) (0.0-0.6) x10-3/uL Baso # (Auto) (0.0-0.3) x10-3/uL Sodium (135-145) mmol/L Potassium (3.5-5.3) mmol/L Chloride (100-110) mmol/L Carbon Dioxide (21-32) mmol/L BUN (7-18) mg/dL Creatinine (0.70-1.30) mg/dL Est Cr Clr Drug Dosing mL/min Estimated GFR (MDRD) (>60) BUN/Creatinine Ratio (9-20) Glucose (80-116) mg/dL Calcium (8.6-10.2) mg/dL Total Bilirubin (0.1-1.3) mg/dL AST (5-25) IU/L ALT (12-36) U/L Alkaline Phosphatase (56-112) IU/L C-Reactive Protein (0.5-0.9) mg/dL Total Protein (6.0-8.0) g/dL Albumin (3.5-5.2) g/dL Globulin g/dL Albumin/Globulin Ratio Lipase (73-393) U/L Urine Color [place] (YELLOW) Urine Appearance Clear (CLEAR) Urine pH 5.0 (5.0-6.5) Ur Specific [place] 1.010 (1.010-1.025) Urine Protein Negative (NEGATIVE) mg/dL Urine Glucose (UA) Normal (NORMAL) mg/dL Urine Ketones Negative (NEGATIVE) mg/dL Urine Occult Blood Negative (NEGATIVE) Urine Nitrite Negative (NEGATIVE) Urine Bilirubin Negative (NEGATIVE) Urine Urobilinogen Normal (NEGATIVE) mg/dL Ur Leukocyte Esterase Negative (NEGATIVE) Urine RBC 0-5 (0-5) Urine WBC 5-10 H (0-5) Ur Squamous Epith Cells Occasional (NS,R,O) Urine Bacteria Rare H (NS) Urine Mucus Moderate H (NS) Ethyl Alcohol (<0.03) % Meds: Medications Generic Name Dose Route Start Last Admin Trade Name Freq PRN Reason Stop Dose Admin Sodium Chloride 1,000 mls @ 999 mls/hr 02/15/21 12:00 02/15/21 12:15 Normal Saline IV 999 mls/hr ASDIRECTED ISELA Administration Discontinued Medications Generic Name Dose Route Start Last Admin Trade Name Freq PRN Reason Stop Dose Admin Iopamidol 150 ml 02/15/21 12:21 02/15/21 13:18 Iopamidol 755 Mg/Ml 150 Ml Bottle IV 02/15/21 12:22 121 ml ONETIME ONE Administration Ketorolac Tromethamine 30 mg 02/15/21 11:59 02/15/21 12:18 Ketorolac 30 Mg/Ml Sdv IVPUSH 02/15/21 12:00 30 mg ONETIME ONE Administration Ondansetron HCl 4 mg 02/15/21 11:59 02/15/21 12:18 Ondansetron 4 Mg/2 Ml Sdv IVPUSH 02/15/21 12:00 4 mg ONETIME ONE Administration - Re-Assessments/Exams Free Text/Narrative Re-Assessment/Exam: 02/15/21 13:54 MPMP neg x 1y d/w Dr Rodriguez, phlegmon at head of pancreas, fatty liver pt denies alc tx in past, did inpt tx for IVDA (heroin) in [place] nearly 4y ago, says he has been clean of heroin since d/c nearly 4y ago, however does dri nk alc daily no previous h/o pancreatitis is agreeable to admission N better, not gone pain down to 8/10 after Toradol IV, says he is more comfortable and not restless on the bed d/w Dr Augustine who accepted him in admission and will come see pt Departure - Departure Time of Disposition: 13:51 Disposition: Admitted As Inpatient 65 Condition: Good Clinical Impression: Acute pancreatitis, Phlegmon of pancreas, Fatty liver, Alcohol abuse, History of intravenous drug abuse, Elevated total protein, Hyperglycemia - Discharge Information *PRESCRIPTION DRUG MONITORING PROGRAM REVIEWED*: Yes *COPY OF PRESCRIPTION DRUG MONITORING REPORT IN PATIENT MANPREET: No Forms: ED Department Discharge Sepsis Event Note (ED) - Focused Exam Vital Signs: Vital Signs Temp Pulse Resp BP Pulse Ox 02/15/21 11:35 36.4 C 113 H 22 H 148/98 H 96 - My Orders Last 24 Hours: My Active Orders 02/15/21 12:00 Abdomen Pelvis w Cont [CT] Stat Sodium Chloride 0.9% [Normal Saline] 1,000 ml IV ASDIRECTED 02/15/21 13:50 Admission Status [Patient Status] [ADT] Routine - Assessment/Plan Last 24 Hours: My Active Orders 02/15/21 12:00 Abdomen Pelvis w Cont [CT] Stat Sodium Chloride 0.9% [Normal Saline] 1,000 ml IV ASDIRECTED 02/15/21 13:50 Admission Status [Patient Status] [ADT] Routine
[2021-02-15] MEDS ORDERED: Iopamidol 755 MG/ML 150 ML Bottle IV ONE (12:21)
[2021-02-15] MEDS ORDERED: Albuterol 8 GM Inhaler INH PRN (14:40)
[2021-02-15] MEDS ORDERED: HYDROmorphone 2 MG/ML SDV IVPUSH PRN (14:45)
[2021-02-15] MEDS ORDERED: Glucagon,Human Recombinant 1 MG Vial IM PRN (14:53)
[2021-02-15] MEDS ORDERED: 50% Dextrose in Water 50 ML Syringe IVPUSH PRN (14:53)
[2021-02-15] MEDS ORDERED: MVI, Adult with Vitamin K 10 ML, Thiamine 100 MG, Folic Acid 1 MG, Magnesium Sulfate 3 ... IV ONE ×5 (15:00)
[2021-02-15] MEDS ORDERED: LORazepam 1 MG Tab PO SCH (15:00)
[2021-02-15] MEDS: cloNIDine 0.1 MG Tab PO SCH (15:26)
[2021-02-15] MEDS: Insulin Lispro 100 Unit/ML 3 ML KwikPen SUBCUT SCH ×5 (15:37→23:35)
--- NOTE | 2021-02-15 15:54 | PCM.HP.2 ---
H&P History of Present Illness - General Date of Service: 02/15/21 Admit Problem/Dx: Admission Diagnosis/Problem Admission Diagnosis/Problem Pancreatitis Source of Information: Patient, Old Records, Provider History Limitations: Reports: No Limitations - History of Present Illness Initial Comments - Free Text/Narative: 30-year-old gentleman with a past medical history significant for alcohol and other substance abuse came to the emergency department for evaluation of acute abdominal pain. He has been to rehabilitation and has not used any substances other than alcohol for several years. However, he does drink alcohol, 6 or more 1 ounce servings of liquor daily. His last alcohol use was approximately 24 hours prior to presenting to the emergency department and the patient states he had about 5 shots. He had been having increasing abdominal pain, nausea, and reduced appetite for several days. In the emergency department he was found to have acute pancreatitis with elevated liver enzymes and elevated lipase. CT of the abdomen showed likely pancreatitis with likely pseudocyst/phlegmon. Patient will be admitted for treatment of acute pancreatitis. Onset of Symptoms: Reports: Gradual Duration of Symptoms: Reports: Day(s): Location: Reports: Abdomen ABDOMINAL Pain Score (Numeric/FACES): 10 - Related Data Allergies/Adverse Reactions: Allergies Allergy/AdvReac Type Severity Reaction Status Date / Time No Known Allergies Allergy Unverified 02/15/21 11:57 Home Medications: Home Meds cloNIDine [Catapres] 0.05 mg PO DAILY 10/09/20 [History] Albuterol Sulfate [Albuterol Sulfate Hfa] 2 puff INH Q4H PRN 02/15/21 [History] Losartan [Cozaar] 50 mg PO DAILY 02/15/21 [History] Omeprazole 20 mg PO DAILY 02/15/21 [History] Past Medical History Cardiovascular History: Reports: Hypertension Respiratory History: Reports: Other (See Below) (Reactive airway disease on inhalers.) Neurological History: Reports: Seizure Psychiatric History: Reports: Bipolar, PTSD, Schizophrenia, Suicide Attempt - Past Surgical History Other Surgical History Comment: No previous surgeries. Social & Family History - Family History Family Medical History: No Pertinent Family History - Tobacco Use Tobacco Use Status *Q: Current Every Day Tobacco User Years of Tobacco use: 20 Packs/Tins Daily: 0 - Caffeine Use Caffeine Use: Reports: Coffee - Alcohol Use Days Per Week of Alcohol Use: 7 Number of Drinks Per Day: 7 Total Drinks Per Week: 49 - Recreational Drug Use Recreational Drug Use: No - Living Situation & Occupation Occupation: Employed (Works at [employer]) H&P Review of Systems - Review of Systems: Review Of Systems: See Below General: Reports: Decreased Appetite Pulmonary: Reports: No Symptoms Cardiovascular: Reports: No Symptoms Gastrointestinal: Reports: Abdominal Pain, Nausea Genitourinary: Reports: No Symptoms Musculoskeletal: Reports: Back Pain Skin: Reports: No Symptoms Psychiatric: Reports: No Symptoms Hematologic/Lymphatic: Reports: No Symptoms Immunologic: Reports: No Symptoms Exam - Exam Exam: See Below - Vital Signs Vital Signs: Last Vital Signs Temp 36.4 C 02/15/21 11:35 Pulse 110 H 02/15/21 14:31 Resp 18 02/15/21 14:31 BP 170/86 H 02/15/21 15:26 Pulse Ox 98 02/15/21 14:31 Weight: 106.594 kg - Exam Quality Assessment: Supplemental Oxygen, DVT Prophylaxis General: Alert, Oriented, Cooperative HEENT: EOMI Lungs: Clear to Auscultation, Normal Respiratory Effort Cardiovascular: Regular Rate, Regular Rhythm GI/Abdominal Exam: Normal Bowel Sounds, Tender Back Exam: Paraspinal Tenderness Extremities: Normal Inspection Peripheral Pulses: 2+: Radial (L), Radial (R), Dorsalis Pedis (L), Dorsalis Pedis (R) Skin: Warm, Dry Neurological: Cranial Nerves Intact Neuro Extensive - Mental Status: Alert, Oriented x3, Normal Mood/Affect Psychiatric: Alert, Normal Affect, Normal Mood - Patient Data Lab Results Last 24 hrs: Laboratory Results - last 24 hr 02/15/21 02/15/21 02/15/21 Range/Units 12:12 12:12 12:12 WBC 8.2 (3.2-10.1) x10-3/uL RBC 4.94 (3.90-5.90) x10(6)uL Hgb 16.0 (12.9-17.7) g/dL Hct 47.4 (38.3-50.1) % MCV 96.0 (80.8-98.7) fL MCH 32.5 (27.0-33.3) pg MCHC 33.8 (28.7-35.3) g/dL RDW 13.6 (12.4-15.0) % Plt Count 194 (117-477) x10(3)uL MPV 9.8 (6.7-11.0) fL Neut % (Auto) 63.8 (40.3-71.8) % Lymph % (Auto) 23.6 (15.8-45.3) % [place] % (Auto) 11.7 (5.5-15.2) % Eos % (Auto) 0.5 (0.1-6.8) % Baso % (Auto) 0.4 (0.3-3.8) % Neut # (Auto) 5.3 (1.7-6.9) x10-3/uL Lymph # (Auto) 1.9 (0.5-4.5) x10-3/uL [place] # (Auto) 1.0 (0.0-1.2) x10-3/uL Eos # (Auto) 0.0 (0.0-0.6) x10-3/uL Baso # (Auto) 0.0 (0.0-0.3) x10-3/uL Sodium 136 (135-145) mmol/L Potassium 3.5 (3.5-5.3) mmol/L Chloride 98 L (100-110) mmol/L Carbon Dioxide 25 (21-32) mmol/L BUN 7 (7-18) mg/dL Creatinine 1.2 (0.70-1.30) mg/dL Est Cr Clr Drug Dosing 86.29 mL/min Estimated GFR (MDRD) > 60 (>60) BUN/Creatinine Ratio 5.8 L (9-20) Glucose 187 H D (80-116) mg/dL Calcium 8.0 L (8.6-10.2) mg/dL Magnesium (1.8-2.5) mg/dL Total Bilirubin 0.8 (0.1-1.3) mg/dL AST 247 H* D (5-25) IU/L ALT 195 H* D (12-36) U/L Alkaline Phosphatase 130 H (56-112) IU/L C-Reactive Protein 0.8 (0.5-0.9) mg/dL Total Protein 8.3 H (6.0-8.0) g/dL Albumin 3.6 (3.5-5.2) g/dL Globulin 4.7 g/dL Albumin/Globulin Ratio 0.8 Lipase 477 H (73-393) U/L Urine Color (YELLOW) Urine Appearance (CLEAR) Urine pH (5.0-6.5) Ur Specific [place] (1.010-1.025) Urine Protein (NEGATIVE) mg/dL Urine Glucose (UA) (NORMAL) mg/dL Urine Ketones (NEGATIVE) mg/dL Urine Occult Blood (NEGATIVE) Urine Nitrite (NEGATIVE) Urine Bilirubin (NEGATIVE) Urine Urobilinogen (NEGATIVE) mg/dL Ur Leukocyte Esterase (NEGATIVE) Urine RBC (0-5) Urine WBC (0-5) Ur Squamous Epith Cells (NS,R,O) Urine Bacteria (NS) Urine Mucus (NS) Ethyl Alcohol 0.13 H (<0.03) % SARS-CoV-2 RNA (MICHEL) (NEGATIVE) 02/15/21 02/15/21 02/15/21 Range/Units 12:12 13:20 13:55 WBC (3.2-10.1) x10-3/uL RBC (3.90-5.90) x10(6)uL Hgb (12.9-17.7) g/dL Hct (38.3-50.1) % MCV (80.8-98.7) fL MCH (27.0-33.3) pg MCHC (28.7-35.3) g/dL RDW (12.4-15.0) % Plt Count (117-477) x10(3)uL MPV (6.7-11.0) fL Neut % (Auto) (40.3-71.8) % Lymph % (Auto) (15.8-45.3) % [place] % (Auto) (5.5-15.2) % Eos % (Auto) (0.1-6.8) % Baso % (Auto) (0.3-3.8) % Neut # (Auto) (1.7-6.9) x10-3/uL Lymph # (Auto) (0.5-4.5) x10-3/uL [place] # (Auto) (0.0-1.2) x10-3/uL Eos # (Auto) (0.0-0.6) x10-3/uL Baso # (Auto) (0.0-0.3) x10-3/uL Sodium (135-145) mmol/L Potassium (3.5-5.3) mmol/L Chloride (100-110) mmol/L Carbon Dioxide (21-32) mmol/L BUN (7-18) mg/dL Creatinine (0.70-1.30) mg/dL Est Cr Clr Drug Dosing mL/min Estimated GFR (MDRD) (>60) BUN/Creatinine Ratio (9-20) Glucose (80-116) mg/dL Calcium (8.6-10.2) mg/dL Magnesium 1.6 L (1.8-2.5) mg/dL Total Bilirubin (0.1-1.3) mg/dL AST (5-25) IU/L ALT (12-36) U/L Alkaline Phosphatase (56-112) IU/L C-Reactive Protein (0.5-0.9) mg/dL Total Protein (6.0-8.0) g/dL Albumin (3.5-5.2) g/dL Globulin g/dL Albumin/Globulin Ratio Lipase (73-393) U/L Urine Color [place] (YELLOW) Urine Appearance Clear (CLEAR) Urine pH 5.0 (5.0-6.5) Ur Specific [place] 1.010 (1.010-1.025) Urine Protein Negative (NEGATIVE) mg/dL Urine Glucose (UA) Normal (NORMAL) mg/dL Urine Ketones Negative (NEGATIVE) mg/dL Urine Occult Blood Negative (NEGATIVE) Urine Nitrite Negative (NEGATIVE) Urine Bilirubin Negative (NEGATIVE) Urine Urobilinogen Normal (NEGATIVE) mg/dL Ur Leukocyte Esterase Negative (NEGATIVE) Urine RBC 0-5 (0-5) Urine WBC 5-10 H (0-5) Ur Squamous Epith Cells Occasional (NS,R,O) Urine Bacteria Rare H (NS) Urine Mucus Moderate H (NS) Ethyl Alcohol (<0.03) % SARS-CoV-2 RNA (MICHEL) Negative (NEGATIVE) Result Diagrams: 02/15/21 12:12 02/15/21 16:20 Sepsis Event Note - Evaluation Sepsis Screening Result: No Definite Risk - Focused Exam Vital Signs: Vital Signs Temp Pulse Resp BP BP Pulse Ox 02/15/21 15:26 170/86 H 02/15/21 14:31 110 H 18 176/96 H 98 02/15/21 11:35 36.4 C 113 H 22 H 148/98 H 96 - Problem List (1) Hypertension SNOMED Code(s): 34895607 ICD Code: I10 - ESSENTIAL (PRIMARY) HYPERTENSION Status: Chronic Current Visit: Yes (2) GERD (gastroesophageal reflux disease) SNOMED Code(s): 473020602 ICD Code: K21.9 - GASTRO-ESOPHAGEAL REFLUX DISEASE WITHOUT ESOPHAGITIS Status: Chronic Current Visit: Yes (3) Obesity SNOMED Code(s): 955518124, 997118553 ICD Code: E66.9 - OBESITY, UNSPECIFIED Status: Chronic Current Visit: Yes (4) Acute pancreatitis SNOMED Code(s): 145821442 ICD Code: K85.90 - ACUTE PANCREATITIS WITHOUT NECROSIS OR INFECTION, UNSP Status: Acute Current Visit: Yes (5) Alcohol abuse SNOMED Code(s): 58072174 ICD Code: F10.10 - ALCOHOL ABUSE, UNCOMPLICATED Status: Acute Current Visit: Yes (6) Elevated total protein SNOMED Code(s): 435215220, 469192367 ICD Code: R77.8 - OTHER SPECIFIED ABNORMALITIES OF PLASMA PROTEINS Status: Acute Current Visit: Yes (7) Fatty liver SNOMED Code(s): 883172250 ICD Code: K76.0 - FATTY (CHANGE OF) LIVER, NOT ELSEWHERE CLASSIFIED Status: Acute Current Visit: Yes (8) History of intravenous drug abuse SNOMED Code(s): 33736866413269512 ICD Code: F19.11 - OTHER PSYCHOACTIVE SUBSTANCE ABUSE, IN REMISSION Status: Chronic Current Visit: Yes (9) Hyperglycemia SNOMED Code(s): 34594161 ICD Code: R73.9 - HYPERGLYCEMIA, UNSPECIFIED Status: Acute Current Visit: Yes (10) Phlegmon of pancreas SNOMED Code(s): 23735908 ICD Code: K85.90 - ACUTE PANCREATITIS WITHOUT NECROSIS OR INFECTION, UNSP Status: Acute Current Visit: Yes (11) Abdominal pain SNOMED Code(s): 14303216 ICD Code: R10.9 - UNSPECIFIED ABDOMINAL PAIN Status: Acute Current Visit: No Qualifiers: Abdominal location: left lower quadrant Qualified Code(s): R10.32 - Left lower quadrant pain (12) Low back pain SNOMED Code(s): 900424203 ICD Code: M54.5 - LOW BACK PAIN Status: Acute Current Visit: Yes Problem List Initiated/Reviewed/Updated: Yes Orders Last 24hrs: Active Orders 24 hr Category Date Time Status Admission Status [Patient Status] [ADT] Routine ADT 02/15/21 13:50 Active Accu Check [Blood Glucose Check, Bedside] [] Q2H Care 02/15/21 14:54 Active Activity as Tolerated [RC] .Routine Care 02/15/21 15:45 Ordered CIWAA Assessment [RC] Q4H Care 02/15/21 14:55 Active Notify Provider [RC] PRN Care 02/15/21 14:56 Active RT Post Treatment Assessment [RC] Click to Edit Care 02/15/21 14:41 Active Supplemental O2 [Oxygen Therapy] [RC] ASDIRECTED Care 02/15/21 15:40 Ordered Nothing Per Oral Diet [DIET] Diet 02/15/21 Dinner Active Abdomen Pelvis w Cont [CT] Stat Exams 02/15/21 12:00 Taken COMPREHENSIVE METABOLIC PN,CMP [CHEM] Q8H Lab 02/15/21 16:00 Ordered COMPREHENSIVE METABOLIC PN,CMP [CHEM] Q8H Lab 02/16/21 00:00 Ordered COMPREHENSIVE METABOLIC PN,CMP [CHEM] Q8H Lab 02/16/21 08:00 Ordered COMPREHENSIVE METABOLIC PN,CMP [CHEM] Q8H Lab 02/16/21 16:00 Ordered MAGNESIUM [CHEM] Routine Lab 02/15/21 23:59 Ordered MAGNESIUM [CHEM] Routine Lab 02/16/21 08:00 Ordered Albuterol [Ventolin HFA] Med 02/15/21 14:40 Active 0 gm INH Q4H PRN Dextrose 50% in Water Med 02/15/21 14:53 Active 50 ml IVPUSH ASDIRECTED PRN Enoxaparin [Lovenox] Med 02/15/21 15:45 Ordered 40 mg SUBCUT DAILY Folic Acid/Vitamin B Comp W-C [Renal Caps Softgel] Med 02/16/21 09:00 Active 1 cap PO DAILY Glucagon,Human Recombinant [GlucaGen] Med 02/15/21 14:53 Active 1 mg IM ASDIRECTED PRN HYDROmorphone [Dilaudid] Med 02/15/21 14:45 Active 2 mg IVPUSH Q3H PRN Insulin Lispro [HumaLOG] Med 02/15/21 15:00 Active See Protocol SUBCUT Q2H LORazepam [Ativan] Med 02/15/21 15:00 Active See Protocol IV ASDIRECTED LORazepam [Ativan] Med 02/15/21 15:00 Active See Protocol PO ASDIRECTED Labetalol [Normodyne] Med 02/15/21 15:20 Active 10 mg IV Q4H PRN Losartan [Cozaar] Med 02/16/21 09:00 Active 50 mg PO DAILY MVI, Adult with Vitamin K [Infuvite Adult] 10 ml Med 02/15/21 15:00 Active Thiamine [Vitamin B-1] 100 mg Folic Acid 1 mg Magnesium Sulfate [Magnesium Sulfate 50%] 3 gm Sodium Chloride 0.9% [Normal Saline] 1,000 ml IV ONETIME Pantoprazole [ProTONIX IV] Med 02/15/21 15:45 Ordered 40 mg IVPUSH Q24H Sodium Chloride 0.9% [Normal Saline] 1,000 ml Med 02/15/21 12:00 Active IV ASDIRECTED Sodium Chloride 0.9% [Normal Saline] 1,000 ml Med 02/15/21 18:45 Active IV ASDIRECTED Thiamine [Vitamin B-1] Med 02/16/21 09:00 Active 100 mg PO DAILY cloNIDine [Catapres] Med 02/15/21 15:00 Active 0.05 mg PO DAILY Medication Orders Albuterol (Albuterol 8 Gm Inhaler) 0 gm INH Q4H PRN PRN Reason: Dyspnea Clonidine HCl (Clonidine 0.1 Mg Tab) 0.05 mg PO DAILY ISELA Last Admin: 02/15/21 15:26 Dose: 0.05 mg Documented by: TALIA Dextrose/Water (50% Dextrose In Water 50 Ml Syringe) 50 ml IVPUSH ASDIRECTED PRN PRN Reason: Hypoglycemia Enoxaparin Sodium (Enoxaparin 40 Mg/0.4 Ml Syringe) 40 mg SUBCUT DAILY@1600 ISELA Glucagon (Glucagon,Human Recombinant 1 Mg Vial) 1 mg IM ASDIRECTED PRN PRN Reason: Hypoglycemia Hydromorphone HCl (Hydromorphone 2 Mg/Ml Sdv) 2 mg IVPUSH Q3H PRN PRN Reason: Pain (severe 7-10) Last Admin: 02/15/21 15:07 Dose: 2 mg Documented by: TALIA Sodium Chloride (Normal Saline) 1,000 mls @ 999 mls/hr IV ASDIRECTED [facility] Last Infusion: 02/15/21 12:55 Dose: 500 mls/hr Documented by: Admin: 02/15/21 12:15 Dose: 999 mls/hr Documented by: JOSEFINA Multivitamins/Minerals 10 ml/Thiamine HCl 100 mg/ Folic Acid 1 mg/ Magnesium Sulfate 3 gm/ Sodium Chloride 1,017.2 mls @ 250 mls/hr IV ONETIME ONE Stop: 02/15/21 19:04 Last Admin: 02/15/21 15:24 Dose: 250 mls/hr Documented by: TALIA Sodium Chloride (Normal Saline) 1,000 mls @ 150 mls/hr IV ASDIRECTED [facility] Insulin Human Lispro (Insulin Lispro 100 Unit/Ml 3 Ml Kwikpen) 0 unit SUBCUT Q2H ISELA; Protocol Last Admin: 02/15/21 15:37 Dose: Not Given Documented by: TALIA Labetalol HCl (Labetalol 20 Mg/4 Ml Syringe) 10 mg IV Q4H PRN; Protocol PRN Reason: Hypertension Lorazepam (Lorazepam 2 Mg/Ml Sdv) 0 mg IV ASDIRECTED ISELA; Protocol Lorazepam (Lorazepam 1 Mg Tab) 0 mg PO ASDIRECTED ISELA; Protocol Losartan Potassium (Losartan 50 Mg Tab) 50 mg PO DAILY [facility] Multivit/Ca Carb/B Cmplx/FA/Prenat (Folic Acid/Vitamin B Complex With C Cap) 1 cap PO DAILY [facility] Pantoprazole Sodium (Pantoprazole 40 Mg Vial) 40 mg IVPUSH Q24H ISELA Thiamine HCl (Thiamine 100 Mg Tab) 100 mg PO DAILY [facility] Assessment/Plan Comment:: 1. Admit to inpatient. Patient will be held nothing by mouth initially except for medications and sips of water. Patient was initially given normal saline in the emergency department and he will be given a banana bag at 250 mL per hour followed by normal saline at 150 mL per hour. 2. Monitor electrolytes including magnesium and lipase every 8 hours. Monitor glucose every 2 hours with sliding scale insulin. 3. Dilaudid for pain control 4. Restart home medications for chronic conditions 5. CIWA with Ativan for alcohol withdrawal 6. DVT PROPHYLAXIS: lOVENOX 40 MG SUBCU DAILY 7.GI prophylaxis: Protonix 40 mg IV daily
--- NOTE | 2021-02-15 15:55 | CT ---
CT ABDOMEN AND PELVIS WITH CONTRAST [id number] INDICATION: Epigastric pain times 9 hours, now generalized. Spiral 3.75 mm axial sections were obtained through the abdomen and pelvis with 121 mL Isovue 370 at 1.5 mL/sec with sagittal and coronal reconstructions 02/15/2021 and compared with 10/14/2020. Total exam DLP was 1386.11 mGy-cm. The lower lung fontaine and pleural spaces visualized appeared normal. The heart appeared normal in size. No pericardial effusion was seen. The liver appears to be enlarged compared with the previous study and decreased in density significantly compared with the previous study suggesting a fatty liver. No gallstones were demonstrated. The adrenal glands, spleen, common bile duct, and retroperitoneum appeared essentially normal with mild degree of retroperitoneal lymphadenopathy that is nonspecific. Kidneys appeared normal except for what appears to be a tiny simple cyst in the upper pole of the right kidney and a very tiny possible simple cyst in the lower middle pole of the left kidney as well as a minimal scar in the upper pole of the left kidney. No obstructive uropathy or solid mass lesions were suggested. CT urogram was apparently obtained due to some delay and appeared normal. The urinary bladder was unremarkable. The pancreatic head area appears to be relatively heterogeneous with areas of decreased density and with fluid surrounding the adjacent duodenal loop and inferior aspect of the pancreatic head. The appearance strongly suggests pancreatitis but should be correlated clinically. The fluid collection extends below the duodenal loop adjacent to the pancreas a few centimeters. No generalized phlegmon was identified, however. The appendix appeared normal in caliber but did show multiple appendicoliths on axial images 86 through 95. No evidence of free air or bowel obstruction was identified. No additional organomegaly, mass lesions, or free fluid collections were identified in the abdomen or pelvis. IMPRESSION: 1. Findings are felt to be compatible with pancreatitis, very localized phlegmon surrounding the distal duodenum and extending inferiorly several centimeters. 2. Scarring and tiny low density lesions in the kidneys as noted above, likely cystic in nature. 3. Appearance of increased size of the liver with decreased density compatible with fatty liver. Report was called to Dr. Alanis at 1335 hours, 02/15/2021. [facility]
[2021-02-15] MEDS ORDERED: Nicotine 7 MG/24 Hr Patch TRDERM SCH (17:15)
[2021-02-15] MEDS: Enoxaparin 40 MG/0.4 ML Syringe SUBCUT SCH (17:19)
[2021-02-15] MEDS: Pantoprazole 40 MG Vial IVPUSH SCH (17:19)
[2021-02-15] MEDS ORDERED: Insulin Lispro 100 Unit/ML 3 ML KwikPen SUBCUT ONE (17:25)
[2021-02-15] MEDS: HYDROmorphone 2 MG/ML SDV IVPUSH PRN ×2 (17:32→19:45)
[2021-02-15] MEDS: LORazepam 2 MG/ML SDV IV SCH ×2 (18:44→20:59)
[2021-02-15] MEDS: Sodium Chloride 0.9% 1,000 ML IV SCH (19:30)
[2021-02-15] MEDS: Labetalol 20 MG/4 ML Syringe IV PRN (21:10)
[2021-02-15] MEDS: Sodium Chloride 0.9% 10 ML Syringe FLUSH PRN (21:20)
[2021-02-15] MEDS: Ketorolac 30 MG/ML SDV IVPUSH SCH (22:46)
[2021-02-16] MEDS: Ondansetron 4 MG/2 ML SDV IVPUSH PRN ×3 (00:08→14:58)
[2021-02-16] MEDS: HYDROmorphone 2 MG/ML SDV IVPUSH PRN ×5 (00:36→11:20)
[2021-02-16] MEDS: Insulin Lispro 100 Unit/ML 3 ML KwikPen SUBCUT SCH ×9 (01:24→16:50)
[2021-02-16] MEDS: LORazepam 2 MG/ML SDV IV SCH ×3 (02:17→14:59)
[2021-02-16] MEDS: Sodium Chloride 0.9% 10 ML Syringe FLUSH PRN ×2 (02:17→06:00)
[2021-02-16] MEDS: Sodium Chloride 0.9% 1,000 ML IV SCH ×2 (02:51→09:51)
[2021-02-16] MEDS: Ketorolac 30 MG/ML SDV IVPUSH SCH ×3 (04:21→16:10)
[2021-02-16] MEDS ORDERED: hydrOXYzine HCl 50 MG/ML SDV IM PRN (08:40)
[2021-02-16] MEDS: cloNIDine 0.1 MG Tab PO SCH (08:41)
[2021-02-16] MEDS: Labetalol 20 MG/4 ML Syringe IV PRN (08:45)
[2021-02-16] MEDS ORDERED: Losartan 50 MG Tab PO SCH (09:00)
[2021-02-16] MEDS ORDERED: Folic Acid/Vitamin B Complex With C Cap PO SCH (09:00)
[2021-02-16] MEDS ORDERED: Thiamine 100 MG Tab PO SCH (09:00)
--- NOTE | 2021-02-16 09:01 | PCM.PN ---
- General Info Date of Service: 02/16/21 Admission Dx/Problem (Free Text): Admission Diagnosis/Problem Admission Diagnosis/Problem Pancreatitis Subjective Update: New is struggling with nausea, abdominal pain and distention, and an elevated blood pressure. He did sleep better however he specimen is markedly distended and the pain is not controlled despite IV Dilaudid. Functional Status: Denies: Pain Controlled, Tolerating Diet - Review of Systems General: Reports: No Symptoms HEENT: Reports: No Symptoms Pulmonary: Reports: No Symptoms Cardiovascular: Reports: No Symptoms Gastrointestinal: Reports: Abdominal Pain, Decreased Appetite, Nausea Genitourinary: Reports: No Symptoms Musculoskeletal: Reports: No Symptoms - Patient Data Vitals - Most Recent: Last Vital Signs Temp 98.2 F 02/16/21 04:00 Pulse 106 H 02/16/21 04:00 Resp 20 02/16/21 04:00 BP 164/120 H 02/16/21 08:43 Pulse Ox 96 02/16/21 04:00 Weight - Most Recent: 108.227 kg I&O - Last 24 Hours: Intake & Output 02/15/21 02/16/21 02/16/21 22:59 06:59 14:59 Intake Total 2430 Balance 2430 Lab Results Last 24 Hours: Laboratory Results - last 24 hr 02/15/21 02/15/21 02/15/21 Range/Units 12:12 12:12 12:12 WBC 8.2 (3.2-10.1) x10-3/uL RBC 4.94 (3.90-5.90) x10(6)uL Hgb 16.0 (12.9-17.7) g/dL Hct 47.4 (38.3-50.1) % MCV 96.0 (80.8-98.7) fL MCH 32.5 (27.0-33.3) pg MCHC 33.8 (28.7-35.3) g/dL RDW 13.6 (12.4-15.0) % Plt Count 194 (117-477) x10(3)uL MPV 9.8 (6.7-11.0) fL Neut % (Auto) 63.8 (40.3-71.8) % Lymph % (Auto) 23.6 (15.8-45.3) % Nolan % (Auto) 11.7 (5.5-15.2) % Eos % (Auto) 0.5 (0.1-6.8) % Baso % (Auto) 0.4 (0.3-3.8) % Neut # (Auto) 5.3 (1.7-6.9) x10-3/uL Lymph # (Auto) 1.9 (0.5-4.5) x10-3/uL Nolan # (Auto) 1.0 (0.0-1.2) x10-3/uL Eos # (Auto) 0.0 (0.0-0.6) x10-3/uL Baso # (Auto) 0.0 (0.0-0.3) x10-3/uL Sodium 136 (135-145) mmol/L Potassium 3.5 (3.5-5.3) mmol/L Chloride 98 L (100-110) mmol/L Carbon Dioxide 25 (21-32) mmol/L BUN 7 (7-18) mg/dL Creatinine 1.2 (0.70-1.30) mg/dL Est Cr Clr Drug Dosing 86.29 mL/min Estimated GFR (MDRD) > 60 (>60) BUN/Creatinine Ratio 5.8 L (9-20) Glucose 187 H D (80-116) mg/dL Calcium 8.0 L (8.6-10.2) mg/dL Magnesium (1.8-2.5) mg/dL Total Bilirubin 0.8 (0.1-1.3) mg/dL AST 247 H* D (5-25) IU/L ALT 195 H* D (12-36) U/L Alkaline Phosphatase 130 H (56-112) IU/L C-Reactive Protein 0.8 (0.5-0.9) mg/dL Total Protein 8.3 H (6.0-8.0) g/dL Albumin 3.6 (3.5-5.2) g/dL Globulin 4.7 g/dL Albumin/Globulin Ratio 0.8 Lipase 477 H (73-393) U/L Urine Color (YELLOW) Urine Appearance (CLEAR) Urine pH (5.0-6.5) Ur Specific [place] (1.010-1.025) Urine Protein (NEGATIVE) mg/dL Urine Glucose (UA) (NORMAL) mg/dL Urine Ketones (NEGATIVE) mg/dL Urine Occult Blood (NEGATIVE) Urine Nitrite (NEGATIVE) Urine Bilirubin (NEGATIVE) Urine Urobilinogen (NEGATIVE) mg/dL Ur Leukocyte Esterase (NEGATIVE) Urine RBC (0-5) Urine WBC (0-5) Ur Squamous Epith Cells (NS,R,O) Urine Bacteria (NS) Urine Mucus (NS) Ethyl Alcohol 0.13 H (<0.03) % SARS-CoV-2 RNA (MICHEL) (NEGATIVE) 02/15/21 02/15/21 02/15/21 Range/Units 12:12 13:20 13:55 WBC (3.2-10.1) x10-3/uL RBC (3.90-5.90) x10(6)uL Hgb (12.9-17.7) g/dL Hct (38.3-50.1) % MCV (80.8-98.7) fL MCH (27.0-33.3) pg MCHC (28.7-35.3) g/dL RDW (12.4-15.0) % Plt Count (117-477) x10(3)uL MPV (6.7-11.0) fL Neut % (Auto) (40.3-71.8) % Lymph % (Auto) (15.8-45.3) % Nolan % (Auto) (5.5-15.2) % Eos % (Auto) (0.1-6.8) % Baso % (Auto) (0.3-3.8) % Neut # (Auto) (1.7-6.9) x10-3/uL Lymph # (Auto) (0.5-4.5) x10-3/uL Nolan # (Auto) (0.0-1.2) x10-3/uL Eos # (Auto) (0.0-0.6) x10-3/uL Baso # (Auto) (0.0-0.3) x10-3/uL Sodium (135-145) mmol/L Potassium (3.5-5.3) mmol/L Chloride (100-110) mmol/L Carbon Dioxide (21-32) mmol/L BUN (7-18) mg/dL Creatinine (0.70-1.30) mg/dL Est Cr Clr Drug Dosing mL/min Estimated GFR (MDRD) (>60) BUN/Creatinine Ratio (9-20) Glucose (80-116) mg/dL Calcium (8.6-10.2) mg/dL Magnesium 1.6 L (1.8-2.5) mg/dL Total Bilirubin (0.1-1.3) mg/dL AST (5-25) IU/L ALT (12-36) U/L Alkaline Phosphatase (56-112) IU/L C-Reactive Protein (0.5-0.9) mg/dL Total Protein (6.0-8.0) g/dL Albumin (3.5-5.2) g/dL Globulin g/dL Albumin/Globulin Ratio Lipase (73-393) U/L Urine Color [place] (YELLOW) Urine Appearance Clear (CLEAR) Urine pH 5.0 (5.0-6.5) Ur Specific [place] 1.010 (1.010-1.025) Urine Protein Negative (NEGATIVE) mg/dL Urine Glucose (UA) Normal (NORMAL) mg/dL Urine Ketones Negative (NEGATIVE) mg/dL Urine Occult Blood Negative (NEGATIVE) Urine Nitrite Negative (NEGATIVE) Urine Bilirubin Negative (NEGATIVE) Urine Urobilinogen Normal (NEGATIVE) mg/dL Ur Leukocyte Esterase Negative (NEGATIVE) Urine RBC 0-5 (0-5) Urine WBC 5-10 H (0-5) Ur Squamous Epith Cells Occasional (NS,R,O) Urine Bacteria Rare H (NS) Urine Mucus Moderate H (NS) Ethyl Alcohol (<0.03) % SARS-CoV-2 RNA (MICHEL) Negative (NEGATIVE) 02/15/21 02/16/21 02/16/21 Range/Units 16:20 00:05 00:05 WBC (3.2-10.1) x10-3/uL RBC (3.90-5.90) x10(6)uL Hgb (12.9-17.7) g/dL Hct (38.3-50.1) % MCV (80.8-98.7) fL MCH (27.0-33.3) pg MCHC (28.7-35.3) g/dL RDW (12.4-15.0) % Plt Count (117-477) x10(3)uL MPV (6.7-11.0) fL Neut % (Auto) (40.3-71.8) % Lymph % (Auto) (15.8-45.3) % Nolan % (Auto) (5.5-15.2) % Eos % (Auto) (0.1-6.8) % Baso % (Auto) (0.3-3.8) % Neut # (Auto) (1.7-6.9) x10-3/uL Lymph # (Auto) (0.5-4.5) x10-3/uL [place] # (Auto) (0.0-1.2) x10-3/uL Eos # (Auto) (0.0-0.6) x10-3/uL Baso # (Auto) (0.0-0.3) x10-3/uL Sodium 138 138 (135-145) mmol/L Potassium 3.7 4.9 D (3.5-5.3) mmol/L Chloride 100 102 (100-110) mmol/L Carbon Dioxide 23 24 (21-32) mmol/L BUN 6 L 7 (7-18) mg/dL Creatinine 1.2 1.3 (0.70-1.30) mg/dL Est Cr Clr Drug Dosing 86.29 79.65 mL/min Estimated GFR (MDRD) > 60 > 60 (>60) BUN/Creatinine Ratio 5.0 L 5.4 L (9-20) Glucose 142 H 162 H (80-116) mg/dL Calcium 7.6 L 7.5 L (8.6-10.2) mg/dL Magnesium 2.2 (1.8-2.5) mg/dL Total Bilirubin 0.8 1.2 (0.1-1.3) mg/dL AST 207 H* D 162 H* D (5-25) IU/L ALT 181 H* 159 H* D (12-36) U/L Alkaline Phosphatase 123 H 129 H (56-112) IU/L C-Reactive Protein (0.5-0.9) mg/dL Total Protein 8.0 7.9 (6.0-8.0) g/dL Albumin 3.4 L 3.3 L (3.5-5.2) g/dL Globulin 4.6 4.6 g/dL Albumin/Globulin Ratio 0.7 0.7 Lipase (73-393) U/L Urine Color (YELLOW) Urine Appearance (CLEAR) Urine pH (5.0-6.5) Ur Specific [place] (1.010-1.025) Urine Protein (NEGATIVE) mg/dL Urine Glucose (UA) (NORMAL) mg/dL Urine Ketones (NEGATIVE) mg/dL Urine Occult Blood (NEGATIVE) Urine Nitrite (NEGATIVE) Urine Bilirubin (NEGATIVE) Urine Urobilinogen (NEGATIVE) mg/dL Ur Leukocyte Esterase (NEGATIVE) Urine RBC (0-5) Urine WBC (0-5) Ur Squamous Epith Cells (NS,R,O) Urine Bacteria (NS) Urine Mucus (NS) Ethyl Alcohol (<0.03) % SARS-CoV-2 RNA (MICHEL) (NEGATIVE) Med Orders - Current: Current Medications Albuterol (Albuterol 8 Gm Inhaler) 0 gm INH Q4H PRN PRN Reason: Dyspnea Clonidine HCl (Clonidine 0.1 Mg Tab) 0.05 mg PO DAILY [facility] Last Admin: 02/16/21 08:41 Dose: 0.05 mg Documented by: Dextrose/Water (50% Dextrose In Water 50 Ml Syringe) 50 ml IVPUSH ASDIRECTED PRN PRN Reason: Hypoglycemia Enoxaparin Sodium (Enoxaparin 40 Mg/0.4 Ml Syringe) 40 mg SUBCUT DAILY@1600 [facility] Last Admin: 02/15/21 17:19 Dose: 40 mg Documented by: Glucagon (Glucagon,Human Recombinant 1 Mg Vial) 1 mg IM ASDIRECTED PRN PRN Reason: Hypoglycemia Hydromorphone HCl (Hydromorphone 2 Mg/Ml Sdv) 0.5 mg IVPUSH Q2H PRN PRN Reason: Pain (severe 7-10) Last Admin: 02/16/21 06:56 Dose: 0.5 mg Documented by: Hydroxyzine HCl (Hydroxyzine Hcl 50 Mg/Ml Sdv) 50 mg IM Q6H PRN PRN Reason: Nausea Sodium Chloride (Normal Saline) 1,000 mls @ 999 mls/hr IV ASDIRECTED [facility] Last Infusion: 02/15/21 12:55 Dose: 500 mls/hr Documented by: Sodium Chloride (Normal Saline) 1,000 mls @ 150 mls/hr IV ASDIRECTED [facility] Last Admin: 02/16/21 02:51 Dose: 150 mls/hr Documented by: Insulin Human Lispro (Insulin Lispro 100 Unit/Ml 3 Ml Kwikpen) 0 unit SUBCUT Q2H [facility]; Protocol Last Admin: 02/16/21 07:05 Dose: Not Given Documented by: Ketorolac Tromethamine (Ketorolac 30 Mg/Ml Sdv) 30 mg IVPUSH Q6H [facility] Stop: 02/20/21 21:40 Last Admin: 02/16/21 08:44 Dose: 30 mg Documented by: Labetalol HCl (Labetalol 20 Mg/4 Ml Syringe) 10 mg IV Q4H PRN; Protocol PRN Reason: Hypertension Last Admin: 02/16/21 08:45 Dose: 10 mg Documented by: Lorazepam (Lorazepam 2 Mg/Ml Sdv) 0 mg IV ASDIRECTED [facility]; Protocol Last Admin: 02/16/21 05:59 Dose: 1 mg Documented by: Lorazepam (Lorazepam 1 Mg Tab) 0 mg PO ASDIRECTED [facility]; Protocol Last Admin: 02/15/21 17:27 Dose: 1 mg Documented by: Losartan Potassium (Losartan 50 Mg Tab) 50 mg PO DAILY [facility] Last Admin: 02/16/21 08:43 Dose: 50 mg Documented by: Multivit/Ca Carb/B Cmplx/FA/Prenat (Folic Acid/Vitamin B Complex With C Cap) 1 cap PO DAILY [facility] Last Admin: 02/16/21 08:43 Dose: 1 cap Documented by: Nicotine (Nicotine 7 Mg/24 Hr Patch) 7 mg TRDERM DAILY@1800 [facility] Ondansetron HCl (Ondansetron 4 Mg/2 Ml Sdv) 4 mg IVPUSH Q6H PRN PRN Reason: Nausea/Vomiting Last Admin: 02/16/21 06:01 Dose: 4 mg Documented by: Pantoprazole Sodium (Pantoprazole 40 Mg Vial) 40 mg IVPUSH Q24H [facility] Last Admin: 02/15/21 17:19 Dose: 40 mg Documented by: Sodium Chloride (Sodium Chloride 0.9% 10 Ml Syringe) 10 ml FLUSH ASDIRECTED PRN PRN Reason: IV flush Last Admin: 02/16/21 06:00 Dose: 10 ml Documented by: Thiamine HCl (Thiamine 100 Mg Tab) 100 mg PO DAILY [facility] Last Admin: 02/16/21 08:43 Dose: 100 mg Documented by: Discontinued Medications Hydromorphone HCl (Hydromorphone 2 Mg/Ml Sdv) 2 mg IVPUSH Q3H PRN PRN Reason: Pain (severe 7-10) Last Admin: 02/15/21 15:07 Dose: 2 mg Documented by: Hydromorphone HCl (Hydromorphone 2 Mg/Ml Sdv) 2 mg IVPUSH Q2H PRN PRN Reason: Pain (severe 7-10) Last Admin: 02/15/21 19:45 Dose: 2 mg Documented by: Multivitamins/Minerals 10 ml/Thiamine HCl 100 mg/ Folic Acid 1 mg/ Magnesium Sulfate 3 gm/ Sodium Chloride 1,017.2 mls @ 250 mls/hr IV ONETIME ONE Stop: 02/15/21 19:04 Last Admin: 02/15/21 15:24 Dose: 250 mls/hr Documented by: Iopamidol (Iopamidol 755 Mg/Ml 150 Ml Bottle) 150 ml IV ONETIME ONE Stop: 02/15/21 12:22 Last Admin: 02/15/21 13:18 Dose: 121 ml Documented by: Ketorolac Tromethamine (Ketorolac 30 Mg/Ml Sdv) 30 mg IVPUSH ONETIME ONE Stop: 02/15/21 12:00 Last Admin: 02/15/21 12:18 Dose: 30 mg Documented by: Nicotine (Nicotine 7 Mg/24 Hr Patch) 7 mg TRDERM DAILY [facility] Last Admin: 02/15/21 17:27 Dose: 7 mg Documented by: Ondansetron HCl (Ondansetron 4 Mg/2 Ml Sdv) 4 mg IVPUSH ONETIME ONE Stop: 02/15/21 12:00 Last Admin: 02/15/21 12:18 Dose: 4 mg Documented by: - Exam Quality Assessment: No: Supplemental Oxygen General: Alert, Sedated Neck: Supple Lungs: Clear to Auscultation Cardiovascular: Regular Rate GI/Abdominal Exam: Distended, Rigid, Rebound Extremities: Normal Inspection - Patient Data Lab Results Last 24 hrs: Laboratory Results - last 24 hr 02/15/21 02/15/21 02/15/21 Range/Units 12:12 12:12 12:12 WBC 8.2 (3.2-10.1) x10-3/uL RBC 4.94 (3.90-5.90) x10(6)uL Hgb 16.0 (12.9-17.7) g/dL Hct 47.4 (38.3-50.1) % MCV 96.0 (80.8-98.7) fL MCH 32.5 (27.0-33.3) pg MCHC 33.8 (28.7-35.3) g/dL RDW 13.6 (12.4-15.0) % Plt Count 194 (117-477) x10(3)uL MPV 9.8 (6.7-11.0) fL Neut % (Auto) 63.8 (40.3-71.8) % Lymph % (Auto) 23.6 (15.8-45.3) % [place] % (Auto) 11.7 (5.5-15.2) % Eos % (Auto) 0.5 (0.1-6.8) % Baso % (Auto) 0.4 (0.3-3.8) % Neut # (Auto) 5.3 (1.7-6.9) x10-3/uL Lymph # (Auto) 1.9 (0.5-4.5) x10-3/uL Nolan # (Auto) 1.0 (0.0-1.2) x10-3/uL Eos # (Auto) 0.0 (0.0-0.6) x10-3/uL Baso # (Auto) 0.0 (0.0-0.3) x10-3/uL Sodium 136 (135-145) mmol/L Potassium 3.5 (3.5-5.3) mmol/L Chloride 98 L (100-110) mmol/L Carbon Dioxide 25 (21-32) mmol/L BUN 7 (7-18) mg/dL Creatinine 1.2 (0.70-1.30) mg/dL Est Cr Clr Drug Dosing 86.29 mL/min Estimated GFR (MDRD) > 60 (>60) BUN/Creatinine Ratio 5.8 L (9-20) Glucose 187 H D (80-116) mg/dL Calcium 8.0 L (8.6-10.2) mg/dL Magnesium (1.8-2.5) mg/dL Total Bilirubin 0.8 (0.1-1.3) mg/dL AST 247 H* D (5-25) IU/L ALT 195 H* D (12-36) U/L Alkaline Phosphatase 130 H (56-112) IU/L C-Reactive Protein 0.8 (0.5-0.9) mg/dL Total Protein 8.3 H (6.0-8.0) g/dL Albumin 3.6 (3.5-5.2) g/dL Globulin 4.7 g/dL Albumin/Globulin Ratio 0.8 Lipase 477 H (73-393) U/L Urine Color (YELLOW) Urine Appearance (CLEAR) Urine pH (5.0-6.5) Ur Specific [place] (1.010-1.025) Urine Protein (NEGATIVE) mg/dL Urine Glucose (UA) (NORMAL) mg/dL Urine Ketones (NEGATIVE) mg/dL Urine Occult Blood (NEGATIVE) Urine Nitrite (NEGATIVE) Urine Bilirubin (NEGATIVE) Urine Urobilinogen (NEGATIVE) mg/dL Ur Leukocyte Esterase (NEGATIVE) Urine RBC (0-5) Urine WBC (0-5) Ur Squamous Epith Cells (NS,R,O) Urine Bacteria (NS) Urine Mucus (NS) Ethyl Alcohol 0.13 H (<0.03) % SARS-CoV-2 RNA (MICHEL) (NEGATIVE) 02/15/21 02/15/21 02/15/21 Range/Units 12:12 13:20 13:55 WBC (3.2-10.1) x10-3/uL RBC (3.90-5.90) x10(6)uL Hgb (12.9-17.7) g/dL Hct (38.3-50.1) % MCV (80.8-98.7) fL MCH (27.0-33.3) pg MCHC (28.7-35.3) g/dL RDW (12.4-15.0) % Plt Count (117-477) x10(3)uL MPV (6.7-11.0) fL Neut % (Auto) (40.3-71.8) % Lymph % (Auto) (15.8-45.3) % [place] % (Auto) (5.5-15.2) % Eos % (Auto) (0.1-6.8) % Baso % (Auto) (0.3-3.8) % Neut # (Auto) (1.7-6.9) x10-3/uL Lymph # (Auto) (0.5-4.5) x10-3/uL [place] # (Auto) (0.0-1.2) x10-3/uL Eos # (Auto) (0.0-0.6) x10-3/uL Baso # (Auto) (0.0-0.3) x10-3/uL Sodium (135-145) mmol/L Potassium (3.5-5.3) mmol/L Chloride (100-110) mmol/L Carbon Dioxide (21-32) mmol/L BUN (7-18) mg/dL Creatinine (0.70-1.30) mg/dL Est Cr Clr Drug Dosing mL/min Estimated GFR (MDRD) (>60) BUN/Creatinine Ratio (9-20) Glucose (80-116) mg/dL Calcium (8.6-10.2) mg/dL Magnesium 1.6 L (1.8-2.5) mg/dL Total Bilirubin (0.1-1.3) mg/dL AST (5-25) IU/L ALT (12-36) U/L Alkaline Phosphatase (56-112) IU/L C-Reactive Protein (0.5-0.9) mg/dL Total Protein (6.0-8.0) g/dL Albumin (3.5-5.2) g/dL Globulin g/dL Albumin/Globulin Ratio Lipase (73-393) U/L Urine Color [place] (YELLOW) Urine Appearance Clear (CLEAR) Urine pH 5.0 (5.0-6.5) Ur Specific [place] 1.010 (1.010-1.025) Urine Protein Negative (NEGATIVE) mg/dL Urine Glucose (UA) Normal (NORMAL) mg/dL Urine Ketones Negative (NEGATIVE) mg/dL Urine Occult Blood Negative (NEGATIVE) Urine Nitrite Negative (NEGATIVE) Urine Bilirubin Negative (NEGATIVE) Urine Urobilinogen Normal (NEGATIVE) mg/dL Ur Leukocyte Esterase Negative (NEGATIVE) Urine RBC 0-5 (0-5) Urine WBC 5-10 H (0-5) Ur Squamous Epith Cells Occasional (NS,R,O) Urine Bacteria Rare H (NS) Urine Mucus Moderate H (NS) Ethyl Alcohol (<0.03) % SARS-CoV-2 RNA (MICHEL) Negative (NEGATIVE) 02/15/21 02/16/21 02/16/21 Range/Units 16:20 00:05 00:05 WBC (3.2-10.1) x10-3/uL RBC (3.90-5.90) x10(6)uL Hgb (12.9-17.7) g/dL Hct (38.3-50.1) % MCV (80.8-98.7) fL MCH (27.0-33.3) pg MCHC (28.7-35.3) g/dL RDW (12.4-15.0) % Plt Count (117-477) x10(3)uL MPV (6.7-11.0) fL Neut % (Auto) (40.3-71.8) % Lymph % (Auto) (15.8-45.3) % [place] % (Auto) (5.5-15.2) % Eos % (Auto) (0.1-6.8) % Baso % (Auto) (0.3-3.8) % Neut # (Auto) (1.7-6.9) x10-3/uL Lymph # (Auto) (0.5-4.5) x10-3/uL [place] # (Auto) (0.0-1.2) x10-3/uL Eos # (Auto) (0.0-0.6) x10-3/uL Baso # (Auto) (0.0-0.3) x10-3/uL Sodium 138 138 (135-145) mmol/L Potassium 3.7 4.9 D (3.5-5.3) mmol/L Chloride 100 102 (100-110) mmol/L Carbon Dioxide 23 24 (21-32) mmol/L BUN 6 L 7 (7-18) mg/dL Creatinine 1.2 1.3 (0.70-1.30) mg/dL Est Cr Clr Drug Dosing 86.29 79.65 mL/min Estimated GFR (MDRD) > 60 > 60 (>60) BUN/Creatinine Ratio 5.0 L 5.4 L (9-20) Glucose 142 H 162 H (80-116) mg/dL Calcium 7.6 L 7.5 L (8.6-10.2) mg/dL Magnesium 2.2 (1.8-2.5) mg/dL Total Bilirubin 0.8 1.2 (0.1-1.3) mg/dL AST 207 H* D 162 H* D (5-25) IU/L ALT 181 H* 159 H* D (12-36) U/L Alkaline Phosphatase 123 H 129 H (56-112) IU/L C-Reactive Protein (0.5-0.9) mg/dL Total Protein 8.0 7.9 (6.0-8.0) g/dL Albumin 3.4 L 3.3 L (3.5-5.2) g/dL Globulin 4.6 4.6 g/dL Albumin/Globulin Ratio 0.7 0.7 Lipase (73-393) U/L Urine Color (YELLOW) Urine Appearance (CLEAR) Urine pH (5.0-6.5) Ur Specific [place] (1.010-1.025) Urine Protein (NEGATIVE) mg/dL Urine Glucose (UA) (NORMAL) mg/dL Urine Ketones (NEGATIVE) mg/dL Urine Occult Blood (NEGATIVE) Urine Nitrite (NEGATIVE) Urine Bilirubin (NEGATIVE) Urine Urobilinogen (NEGATIVE) mg/dL Ur Leukocyte Esterase (NEGATIVE) Urine RBC (0-5) Urine WBC (0-5) Ur Squamous Epith Cells (NS,R,O) Urine Bacteria (NS) Urine Mucus (NS) Ethyl Alcohol (<0.03) % SARS-CoV-2 RNA (MICHEL) (NEGATIVE) Result Diagrams: 02/15/21 12:12 02/16/21 00:05 Sepsis Event Note - Evaluation Sepsis Screening Result: No Definite Risk - Focused Exam Vital Signs: Vital Signs Temp Pulse Resp BP BP Pulse Ox 02/16/21 08:43 164/120 H 02/16/21 08:41 164/120 H 02/16/21 04:00 98.2 F 106 H 20 156/100 H 96 02/15/21 23:41 98.1 F 104 H 20 154/107 H 95 - Problem List & Annotations (1) Acute pancreatitis SNOMED Code(s): 411360443 Code(s): K85.90 - ACUTE PANCREATITIS WITHOUT NECROSIS OR INFECTION, UNSP Status: Acute Current Visit: Yes Qualifiers: Pancreatitis type: alcohol induced Acute pancreatitis complication: unspecified Qualified Code(s): K85.20 - Alcohol induced acute pancreatitis without necrosis or infection (2) Alcohol withdrawal SNOMED Code(s): 238579238 Code(s): F10.239 - ALCOHOL DEPENDENCE WITH WITHDRAWAL, UNSPECIFIED Status: Acute Current Visit: Yes Qualifiers: Complication of substance-induced condition: with perceptual disturbance Qualified Code(s): F10.232 - Alcohol dependence with withdrawal with perceptual disturbance (3) Alcohol abuse SNOMED Code(s): 01768590 Code(s): F10.10 - ALCOHOL ABUSE, UNCOMPLICATED Status: Acute Current Visit: Yes (4) Fatty liver SNOMED Code(s): 313289899 Code(s): K76.0 - FATTY (CHANGE OF) LIVER, NOT ELSEWHERE CLASSIFIED Status: Acute Current Visit: Yes (5) Phlegmon of pancreas SNOMED Code(s): 54882483 Code(s): K85.90 - ACUTE PANCREATITIS WITHOUT NECROSIS OR INFECTION, UNSP Status: Acute Current Visit: Yes (6) Hypertension SNOMED Code(s): 47507593 Code(s): I10 - ESSENTIAL (PRIMARY) HYPERTENSION Status: Chronic Current Visit: Yes Qualifiers: Hypertension type: unspecified Qualified Code(s): I10 - Essential (primary) hypertension - Problem List Review Problem List Initiated/Reviewed/Updated: Yes - My Orders Last 24 Hours: My Active Orders 02/16/21 08:34 C-REACTIVE PROTEIN [CHEM] Routine LACTIC ACID [CHEM] Stat 02/16/21 08:40 hydrOXYzine HCL [Vistaril] 50 mg IM Q6H PRN 02/16/21 08:41 Abdomen 2V AP Flat Upright [CR] Urgent 02/16/21 08:42 AMMONIA, PLASMA Urgent 02/17/21 05:11 LIPASE [CHEM] AM - Plan Plan:: We will continue with aggressive pain control, IV fluid replacement, IV benzodiazepines,and along with thiamine, anti-emetics. I will repeat labs i ncluding a lipase level. Flat and upright x-ray will be done today, and possibly a CT repeat to make sure there is no progression of the acute pancreatitis.
[2021-02-16] MEDS ORDERED: Iopamidol 755 Mg/ML 100 ML Bottle IV ONE (09:49)
--- NOTE | 2021-02-16 10:33 | CR ---
INDICATION: Abdominal distension. ABDOMEN, TWO VIEW: Four images of the abdomen in supine and upright projections were obtained 02/16/21 and compared with 01/20/19. Subsegmental atelectatic appearing changes are noted at the lung bases. Pattern of gas and feces is nonspecific without evidence of gross free air or obstruction. There are a few phleboliths in the pelvis. No definite organomegaly or mass lesions were identified. IMPRESSION: 1. Nonacute appearance of the abdomen. 2. Subsegmental atelectatic changes both lung bases, new compared with chest x- ray of 10/09/20. [facility]
--- NOTE | 2021-02-16 10:51 | CT ---
INDICATION: Abdominal distension. CT ABDOMEN AND PELVIS: Spiral 3.75 mm axial sections were obtained through the abdomen and pelvis with 100 cc Isovue-[id number] at 1.5 cc/second with sagittal and coronal reconstructions 02/16/21 and compared with 02/15/21. In the lower lung fontaine visualized, there is now noted multiple areas of density compatible with subsegmental atelectasis in the lower lobes and lingula. There also appear to be some abnormal airspaces posteriorly in the lower lobes. The severity of involvement of the pancreas in pancreatitis has significantly increased with pancreatic phlegmon now extending into the pelvis with ascites. No definite pseudocyst is formed at this time. No other change or new acute process was identified compared with the previous day's CT. Fatty liver is again noted. Minimal renal cortical scarring and low density lesions, likely tiny cysts again noted in the kidneys. IMPRESSION: Increasing severity of pancreatitis with pancreatic phlegmon now visualized throughout the abdomen including pericolonic gutters and extending into the pelvis with ascites in the lower abdomen and pelvis. Total exam DLP was 1964.19 mGy-cm. Report was called to Dr. Hernandez at 1037 hours 02/16/21. [facility]
[2021-02-16] MEDS ORDERED: Naloxone 0.4 MG/ML SDV IVPUSH PRN (10:59)
[2021-02-16] MEDS ORDERED: fentaNYL/Normal Saline 300 MCG/30 ML PCA Vial IV SCH (11:30)
[2021-02-16] MEDS ORDERED: Sodium Chloride 0.9% 1,000 ML IV ONE (13:45)
[2021-02-16] MEDS: Pantoprazole 40 MG Vial IVPUSH SCH (16:09)
[2021-02-16] MEDS: Enoxaparin 40 MG/0.4 ML Syringe SUBCUT SCH (16:12)
[2021-02-16] MEDS ORDERED: Glucagon,Human Recombinant 1 MG Vial IM PRN (17:00)
[2021-02-16] MEDS ORDERED: Insulin Regular, Human 100 Units/ML 3 ML Vial IV ONE (17:00)
[2021-02-16] MEDS ORDERED: 50% Dextrose in Water 50 ML Syringe IVPUSH PRN (17:00)
[2021-02-16] MEDS ORDERED: 50% Dextrose in Water 50 ML Syringe IVPUSH ONE (17:00)
[2021-02-16] MEDS ORDERED: Calcium Gluconate 10% 1 GM/10 ML SDV IVPUSH ONE (17:00)
[2021-02-16] MEDS ORDERED: Sodium Chloride 0.9% 1,000 ML IV SCH (17:00)
[2021-02-16] MEDS ORDERED: Nicotine 7 MG/24 Hr Patch TRDERM SCH (18:00)
[2021-02-16] MEDS ORDERED: Piperacillin/Tazobactam 4.5 GM in Sodium Chloride 0.9% 100 ML IV SCH (18:15)
--- NOTE | 2021-02-17 10:25 | DISCH ---
DISCHARGE DATE: 02/16/2021 REASON FOR ADMISSION: 1. Acute pancreatitis. 2. Alcohol abuse. REASON FOR TRANSFER: 1. Severe pancreatitis. 2. Acute kidney injury. BRIEF HISTORY: A 30-year-old male admitted after alcohol consumption, thought to be withdrawals, had abdominal pain. A CT revealed pancreatitis. Admitted, n.p.o., started fluids, thiamine replacement, but the symptoms got worse with pain, which was uncontrollable and abdominal distention. Ascites was noted on repeat CT and marked inflammation of the pancreas. Lipase went up to 3,300 and creatinine jumped to 1.6. I discussed with the hospitalist at [facility] and transferred the patient by ambulance. I started empiric Zosyn, bolus of fluid 2 L given before transfer. I spent an hour in the transfer and discharge of the patient. /[id number] RUCHI/JOSE LUIS
== END 2021-02-16 18:45 | DRG 896 ==
LOC: EDUNIT# → EDBD → FB.ED 11:24 → FB.MS 13:50
PROVIDERS: ADMIT Emergency Medicine; ATTEND Family Medicine
DX: F10.232 Alcohol dependence with withdrawal with perceptual disturbance (principal); K85.90 Acute pancreatitis without necrosis or infection, unspecified; N17.9 Acute kidney failure, unspecified; R18.8 Other ascites; I10 Essential (primary) hypertension; K21.9 Gastro-esophageal reflux disease without esophagitis; E66.9 Obesity, unspecified; K76.0 Fatty (change of) liver, not elsewhere classified; Z20.822 Contact with and (suspected) exposure to COVID-19; F19.11 Other psychoactive substance abuse, in remission; R10.32 Left lower quadrant pain; M54.5 Low back pain; R56.9 Unspecified convulsions; F43.10 Post-traumatic stress disorder, unspecified; F31.9 Bipolar disorder, unspecified; F20.9 Schizophrenia, unspecified; F17.200 Nicotine dependence, unspecified, uncomplicated; Y90.0 Blood alcohol level of less than 20 mg/100 ml; Z79.899 Other long term (current) drug therapy; Z68.36 Body mass index [BMI] 36.0-36.9, adult
CPT/HCPCS: 36415; 74019; 74177; 80053; 80307; 81001; 82140; 83605; 83690; 83735; 85025; 86140; 94760; 96374; 96375; 99285-25; A9270-GY; C9113; J0610; J1170; J1650; J1815; J1815-GY; J1885; J2060; J2405; J2543; J3010; J3411; J3475; J3490; J7030; Q9967; U0002

== ENCOUNTER 2022-10-03 10:22 | Emergency (ER) | payer MEDICAID ==
[2022-10-03] MEDS ORDERED: Diazepam 5 MG Tab PO ONE (10:38)
[2022-10-03 11:09] LABS: ESTIMATED GFR 116 mL/min (>60)
[2022-10-03] MEDS ORDERED: Insulin Lispro 100 Unit/ML 3 ML KwikPen SUBCUT STA ×2 (11:43→11:53)
[2022-10-03] MEDS ORDERED: 50% Dextrose in Water 50 ML Syringe IVPUSH PRN ×2 (11:43→11:53)
[2022-10-03] MEDS ORDERED: Glucagon,Human Recombinant 1 MG Vial IM PRN ×2 (11:43→11:53)
== END 2022-10-03 13:35 | disposition home or self-care (01) ==
LOC: FB.ED 10:22
DX: R55 Syncope and collapse (principal); F10.129 Alcohol abuse with intoxication, unspecified; I10 Essential (primary) hypertension; E66.9 Obesity, unspecified; Z68.30 Body mass index [BMI] 30.0-30.9, adult; F17.210 Nicotine dependence, cigarettes, uncomplicated; Z91.018 Allergy to other foods; Z79.899 Other long term (current) drug therapy; Y90.0 Blood alcohol level of less than 20 mg/100 ml
CPT/HCPCS: 36415; 73030-LT; 80053; 80307; 82150; 82947; 83690; 84443; 85025; 93005; 99285; A9270-GY; J1815

== ENCOUNTER 2023-04-09 02:40 | Emergency (ER) | payer MEDICAID ==
[2023-04-09] MEDS ORDERED: Sodium Chloride 0.9% 1,000 ML IV ONE (02:48)
[2023-04-09] MEDS ORDERED: Ondansetron 4 MG/2 ML SDV IVPUSH ONE (02:48)
[2023-04-09] MEDS ORDERED: Sodium Chloride 0.9% 10 ML Syringe FLUSH PRN (02:48)
[2023-04-09 03:07] LABS: HEMATOCRIT 53.2 % (38.3-50.1); HEMOGLOBIN 17.2 g/dL (12.9-17.7); MEAN CORPUSCULAR HGB CONC 32.3 g/dL (28.7-35.3); MEAN CORPUSCULAR VOLUME 92.8 fL (80.8-98.7); MEAN PLATELET VOLUME 10.7 fL (6.7-11.0); PLATELET COUNT,PLT 334 x10(3)uL (117-477); RED BLOOD CELL COUNT 5.73 x10(6)uL (3.90-5.90); RED CELL DISTRIBUTION WIDTH 13.5 % (12.4-15.0); WHITE BLOOD CELL COUNT,WBC 16.2 x10-3/uL (3.2-10.1)
[2023-04-09 03:12] LABS: BASE EXCESS VENOUS,POC -16 mmol/L (-2 - 3+); PCO2 VENOUS,POC 19 mmHg (41-51); PH VENOUS,POC 7.24 pH Units (7.32-7.43)
[2023-04-09 03:16] LABS: A/G RATIO 0.8; ALANINE AMINOTRANSFERASE,ALT 68 U/L (12-36); ALBUMIN 4.7 g/dL (3.5-5.2); ALKALINE PHOSPHATASE 151 IU/L (56-112); ASPARTATE AMNIOTRANSFERASE,AST 39 IU/L (5-25); BILIRUBIN TOTAL 0.7 mg/dL (0.1-1.3); BLOOD UREA NITROGEN,BUN 24 mg/dL (7-18); CALCIUM 9.7 mg/dL (8.6-10.2); ESTIMATED GFR 36 mL/min (>60); MAGNESIUM 2.3 mg/dL (1.8-2.5); POTASSIUM,K 5.8 mmol/L (3.5-5.3); PROTEIN TOTAL,TP 10.6 g/dL (6.0-8.0); SODIUM,NA 124 mmol/L (135-145)
[2023-04-09] MEDS ORDERED: Metoclopramide 10 MG/2 ML SDV IVPUSH ONE (03:18)
[2023-04-09 03:19] LABS: CHLORIDE,CL 77 mmol/L (100-110)
[2023-04-09 03:20] LABS: CARBON DIOXIDE,CO2 9 mmol/L (21-32); CREATININE 2.4 mg/dL (0.70-1.30); GLUCOSE RANDOM 859 mg/dL (80-116)
[2023-04-09 03:30] LABS: C-REACTIVE PROTEIN 1.67 mg/dL (<0.33); ETHANOL BLOOD MEDICAL < 0.03 % (<0.03); LIPASE 24 U/L (16-77); TROPONIN I 6.3 pg/mL (4.0-60.3)
[2023-04-09] MEDS ORDERED: Insulin Regular, Human 100 Units/ML 3 ML Vial IV ONE (03:35)
[2023-04-09] MEDS ORDERED: Glucagon,Human Recombinant 1 MG Vial IM PRN (03:35)
[2023-04-09] MEDS ORDERED: 50% Dextrose in Water 50 ML Syringe IVPUSH PRN (03:35)
[2023-04-09 03:38] LABS: BASOPHILS PERCENT MAN 1 % (0-2); LYMPHOCYTES PERCENT MAN 11 % (13-37); MONOCYTES PERCENT MAN 6 % (4-12); SEG NEUTROPHILS PERCENT MAN 82 % (46-82)
[2023-04-09] MEDS ORDERED: Insulin Regular in 0.9 % NACL 100 ML IV SCH (03:45)
[2023-04-09 04:05] LABS: BILIRUBIN,URINE NEGATIVE (NEGATIVE); GLUCOSE,URINE >1000 mg/dL (NORMAL); KETONES,URINE 150 mg/dL (NEGATIVE); LEUKOCYTE ESTERASE,URINE NEGATIVE (NEGATIVE); NITRITE,URINE NEGATIVE (NEGATIVE); OCCULT BLOOD,URINE NEGATIVE (NEGATIVE); PROTEIN,URINE TRACE mg/dL (NEGATIVE); UROBILINOGEN,URINE NORMAL (NEGATIVE)
[2023-04-09 04:07] LABS: APPEARANCE,URINE CLEAR (CLEAR); BACTERIA,URINE FEW (NS); COLOR,URINE YELLOW (YELLOW); RBC,URINE 0-5 (0-5); SQUAMOUS EPITHELIAL CELLS,UR OCCASIONAL (NS,R,O); WBC,URINE 0-5 (0-5)
[2023-04-09] MEDS ORDERED: Pantoprazole 40 MG Vial IVPUSH ONE (04:13)
== END 2023-04-09 05:00 ==
LOC: FB.ED 02:40
DX: E11.10 Type 2 diabetes mellitus with ketoacidosis without coma (principal); N17.9 Acute kidney failure, unspecified; I10 Essential (primary) hypertension; J45.909 Unspecified asthma, uncomplicated; E66.9 Obesity, unspecified; Z68.31 Body mass index [BMI] 31.0-31.9, adult; Z72.0 Tobacco use; Z91.018 Allergy to other foods; Z79.899 Other long term (current) drug therapy; Z79.4 Long term (current) use of insulin
CPT/HCPCS: 36415; 80053; 80307; 81001; 82947; 83605; 83690; 83735; 84484; 85025; 86140; 93005; 93010; 96361; 96374; 96375; 99285; C9113; J1815; J2405; J2765; J3490; J7030

== ENCOUNTER 2024-11-05 04:09 | Emergency (ER) | payer MEDICAID ==
[2024-11-05] MEDS ORDERED: Ondansetron 4 MG Tab.DIS PO ONE (04:10)
[2024-11-05 04:35] VITALS: PULSE 129
[2024-11-05] MEDS: Ketorolac 30 MG/ML SDV IVPUSH ONE (04:38)
[2024-11-05] MEDS: Sodium Chloride 0.9% 1,000 ML IV SCH ×3 (04:38→06:10)
[2024-11-05] MEDS: Sodium Chloride 0.9% 10 ML Syringe FLUSH PRN (04:39)
[2024-11-05] MEDS: Ondansetron 4 MG/2 ML SDV IVPUSH ONE ×2 (04:39→07:47)
[2024-11-05 04:51] LABS: HEMOGLOBIN 19.7 g/dL (12.9-17.7); MEAN CORPUSCULAR HGB CONC 33.9 g/dL (28.7-35.3)
[2024-11-05 04:52] LABS: HEMATOCRIT 58.2 % (38.3-50.1); MEAN CORPUSCULAR HEMOGLOBIN 31.2 pg (27.0-33.3); MEAN CORPUSCULAR VOLUME 92.2 fL (80.8-98.7); MEAN PLATELET VOLUME 10.7 fL (6.7-11.0); PLATELET COUNT,PLT 224 x10(3)uL (117-477); RED BLOOD CELL COUNT 6.31 x10(6)uL (3.90-5.90); RED CELL DISTRIBUTION WIDTH 13.1 % (12.4-15.0); WHITE BLOOD CELL COUNT,WBC 9.1 x10-3/uL (3.2-10.1)
[2024-11-05 05:12] LABS: A/G RATIO 0.7; ALANINE AMINOTRANSFERASE,ALT 57 U/L (12-36); ALBUMIN 4.4 g/dL (3.5-5.2); ALKALINE PHOSPHATASE 125 IU/L (56-112); ASPARTATE AMNIOTRANSFERASE,AST 49 IU/L (5-25); BILIRUBIN TOTAL 0.8 mg/dL (0.1-1.3); BLOOD UREA NITROGEN,BUN 17 mg/dL (7-18); CALCIUM 9.9 mg/dL (8.6-10.2); PROTEIN TOTAL,TP 10.4 g/dL (6.0-8.0)
[2024-11-05 05:21] LABS: GLUCOSE RANDOM 501 mg/dL (80-116)
[2024-11-05] MEDS ORDERED: Glucagon,Human Recombinant 1 MG Vial IM PRN ×3 (05:22→07:40)
[2024-11-05] MEDS ORDERED: 50% Dextrose in Water 50 ML Syringe IVPUSH PRN ×3 (05:22→07:40)
[2024-11-05 05:27] LABS: EST CRCL DRUG DOSING (CG) 46.78 mL/min; ESTIMATED GFR 41 mL/min (>60); POTASSIUM,K 4.4 mmol/L (3.5-5.3); SODIUM,NA 130 mmol/L (135-145)
[2024-11-05 05:31] LABS: CHLORIDE,CL 87 mmol/L (100-110)
[2024-11-05 05:32] LABS: CARBON DIOXIDE,CO2 10 mmol/L (21-32); CREATININE 2.1 mg/dL (0.70-1.30)
[2024-11-05] MEDS: Insulin Regular, Human 100 Units/ML 10 ML Vial IV ONE (05:34)
[2024-11-05 05:50] LABS: BASE EXCESS VENOUS,POC -17 mmol/L (-2 - 3+); PCO2 VENOUS,POC 29 mmHg (41-51); PH VENOUS,POC 7.16 pH Units (7.32-7.43)
[2024-11-05] MEDS: Insulin Regular in 0.9 % NACL 100 ML IV SCH (06:25)
[2024-11-05 06:30] LABS: LYMPHOCYTES PERCENT MAN 27 % (13-37); MONOCYTES PERCENT MAN 11 % (4-12); SEG NEUTROPHILS PERCENT MAN 62 % (46-82)
[2024-11-05] MEDS: Pantoprazole 40 MG Vial IVPUSH ONE (06:49)
[2024-11-05 07:15] LABS: BILIRUBIN,URINE NEGATIVE (NEGATIVE); GLUCOSE,URINE >1000 mg/dL (NORMAL); KETONES,URINE 150 mg/dL (NEGATIVE); LEUKOCYTE ESTERASE,URINE NEGATIVE (NEGATIVE); NITRITE,URINE NEGATIVE (NEGATIVE); OCCULT BLOOD,URINE NEGATIVE (NEGATIVE); PROTEIN,URINE TRACE mg/dL (NEGATIVE); UROBILINOGEN,URINE NORMAL (NEGATIVE)
[2024-11-05 07:16] VITALS: BP 136/102
[2024-11-05 07:16] LABS: APPEARANCE,URINE CLEAR (CLEAR); COLOR,URINE YELLOW (YELLOW)
[2024-11-05 07:25] LABS: BACTERIA,URINE FEW (NS); SQUAMOUS EPITHELIAL CELLS,UR FEW (NS,R,O)
[2024-11-05] MEDS: Insulin Lispro 100 Unit/ML 3 ML KwikPen SUBCUT STA (08:06)
[2024-11-05] MEDS: Insulin Glargine,Human Rec. Analog 100 Units/ML 3 ML Pen SUBCUT STA (08:07)
[2024-11-05 09:17] LABS: BLOOD UREA NITROGEN,BUN 15 mg/dL (7-18); BUN/CREATININE RATIO 8.8 (9-20); CALCIUM 8.2 mg/dL (8.6-10.2); CARBON DIOXIDE,CO2 15 mmol/L (21-32); CHLORIDE,CL 92 mmol/L (100-110); CREATININE 1.7 mg/dL (0.70-1.30); EST CRCL DRUG DOSING (CG) 57.78 mL/min; ESTIMATED GFR 53 mL/min (>60); GLUCOSE RANDOM 321 mg/dL (80-116); POTASSIUM,K 4.1 mmol/L (3.5-5.3); SODIUM,NA 126 mmol/L (135-145)
== END 2024-11-05 09:51 | disposition left against medical advice (07) ==
LOC: FB.ED 04:09
DX: E11.10 Type 2 diabetes mellitus with ketoacidosis without coma (principal); E86.0 Dehydration; E87.1 Hypo-osmolality and hyponatremia; N17.9 Acute kidney failure, unspecified; I10 Essential (primary) hypertension; J45.909 Unspecified asthma, uncomplicated; E66.9 Obesity, unspecified; Z68.21 Body mass index [BMI] 21.0-21.9, adult; Z91.018 Allergy to other foods; Z79.4 Long term (current) use of insulin; Z79.51 Long term (current) use of inhaled steroids; Z79.899 Other long term (current) drug therapy
CPT/HCPCS: 36415; 71045; 80048; 80053; 80307; 81001; 82803; 82947; 84484; 85025; 85379; 87428-QW; 93005; 96361; 96374; 96375; 96376; 99285-25; A9270-GY; J1815; J1815-GY; J1885; J2405; J2470; Q0162